=== PATIENT | male | born 1970 | race Caucasian/White ===

== ENCOUNTER 2018-07-31 04:06 | Inpatient (IN) | payer OTHER, SELFPAY ==
[2018-07-31] VITALS (23 sets, daily range): BP systolic 116–145; BP diastolic 56–91; PULSE 33–75; RESP 12–18; TEMP 36.7–36.8; O2SAT 95–100; BMI 25.0; BMI 24.5
--- NOTE | 2018-07-31 04:09 | ED.RN ---
CALLED FOR EKG PER RN REQUEST, NO OLD EKGS IN MUSE
--- NOTE | 2018-07-31 04:23 | EKG12_ITS ---
Test Reason : CARDIAC PAUSE Blood Pressure : / mmHG Vent. Rate : 044 BPM Atrial Rate : 044 BPM P-R Int : 162 ms QRS Dur : 104 ms QT Int : 452 ms P-R-T Axes : 000 005 018 degrees QTc Int : 386 ms Marked sinus bradycardia Abnormal ECG When compared with ECG of 31-JUL-2018 17:20, MANUAL COMPARISON REQUIRED, DATA IS UNCONFIRMED Confirmed by RADHA DUGAN, TOM ([id number]), publications editor JAMES ANDERSEN ([id number]) on 08/02/2018 8:01:24 AM Referred By: Noelle Amador Confirmed By:TOM GARCIA MD
--- NOTE | 2018-07-31 04:23 | RAD_ITS ---
STUDY: X-RAY CHEST REASON FOR EXAM: Male, 48 years old. Chest pain. TECHNIQUE: Single AP portable view of the chest. COMPARISON: None. FINDINGS: The lungs are clear and expanded. There is no demonstrated pleural abnormality. Normal size heart. There is small pneumomediastinum noted on the CT scan not well seen on this study. Normal visualized pulmonary arteries. Normal visualized aortic arch and descending thoracic aorta. Normal visualized thoracic spine. Normal visualized ribs, clavicles, and shoulders. There is no demonstrated abnormality of the visualized soft tissue structures of the upper abdomen. RAD/Chest 1 View IMPRESSION: Small pneumomediastinum of uncertain significance. Electronically Signed: Luis E Wu, at 6:43 EDT Tel , Service support ,
[2018-07-31 04:32] LABS: Absolute Lymphocyte Count 1.48 X10^3/ul (0.83-4.51); Absolute Neutrophil Count 5.2 X10^3/uL (2.0-7.7); Basophil# 0.03 X10^3/uL; Basophil% 0.4 % (0-1); Eosinophil# 0.25 X10^3/uL; Eosinophils% 3.3 % (0-5); Hematocrit 39.5 % (40-54); Hemoglobin 13.7 g/dl (13.0-16.5); Lymphocyte # 1.48 X10^3/ul (4.0); Lymphocyte % 19.4 % (19-41); Mean Corp Hgb Conc 34.7 g/gl (32-36); Mean Corpuscular Hgb 34.3 pg (27.0-32.0); Mean Corpuscular Volume 98.8 fL (80-94); Mean Platelet Vol. 9.6 fl (6.2-12.0); Monocyte# 0.61 X10^3/uL; Neutrophil # 5.22 X10^3/uL (2.7-7.7); Neutrophil % 68.6 % (47-70); Platelet Count 224 K/mm3 (150-450); RBC Distribution Width CV 11.8 % (11.6-14.6); RBC Distribution Width SD 41.7 fl (35.1-43.9); White Blood Count 7.6 K/mm3 (4.4-11.0)
[2018-07-31 04:33] LABS: POSITIVE COUNT NO; POSITIVE DIFFERENTIAL NO; POSITIVE MORPHOLOGY NO
[2018-07-31 04:47] LABS: BUN 10 mg/dL (7-18); Creatinine, Serum 0.97 mg/dL (0.70-1.30); Glucose 98 mg/dL (74-106)
[2018-07-31 04:48] LABS: Anion Gap 8 (5-15); BUN/Creat Ratio 10.3 RATIO (10-20); Calcium,Total 8.6 mg/dL (8.5-10.1); Chloride 108 mmol/L (98-107); EST Glomerular Filtration Rate 87 mL/min (>60); Est Glom Filt Rate - Afr Amer 106 mL/min (>60); Potassium 4.1 mmol/L (3.5-5.1); Sodium Level 143 mmol/L (136-145)
[2018-07-31] MEDS: Nitroglycerin SL (ED/IMG/CATH) 0.4 MG TABLET SUBLINGUAL ×2 (05:04→05:09)
--- NOTE | 2018-07-31 05:23 | CT_ITS ---
STUDY: CT CERVICAL SPINE WITHOUT CONTRAST REASON FOR EXAM: Male, 48 years old. PT FELL DURING EXAMINATION, STRUCK HEAD ON FLOOR RADIATION DOSAGE (If Supplied By Facility): CTDIvol = ( 23.30 ) mGy, DLP = ( 616.33 ) mGycm TECHNIQUE: High resolution transaxial imaging was performed without contrast material. Sagittal and coronal images were reconstructed. Individualized dose optimization techniques were used for this CT. COMPARISON: None FINDINGS: Normal craniovertebral junction. Normal anterior atlantoaxial articulation. Normal odontoid process. There is straightening of the normal cervical lordosis. Normal vertebral bodies and posterior osseous elements. C2-3: Normal endplates. Normal disc height and morphology. Normal central canal and intervertebral neuroforamina. C3-4: Normal endplates. Normal disc height and morphology. Normal central canal and intervertebral neuroforamina. C4-5: Normal endplates. Normal disc height and morphology. Normal central canal and intervertebral neuroforamina. C5-6: Normal endplates. Normal disc height and morphology. Normal central canal and intervertebral neuroforamina. C6-7: Normal endplates. Normal disc height and morphology. Normal central canal and intervertebral neuroforamina. C7-T1: Normal endplates. Normal disc height and morphology. Normal central canal and intervertebral neuroforamina. Dissecting air bubbles are seen in the soft tissues of neck. There is small pneumomediastinum of uncertain significance. CT/Spine Cervical without Contras IMPRESSION: No acute bone injury of the cervical spine. Dissecting air bubbles are seen in the soft tissues of neck. There is small pneumomediastinum of uncertain significance. Electronically Signed: Luis E Wu, at 6:41 EDT Tel , Service support ,
--- NOTE | 2018-07-31 05:23 | CT_ITS ---
STUDY: CT BRAIN WITHOUT CONTRAST REASON FOR EXAM: Male, 48 years old. PT FELL DURING EXAMINATION, STRUCK HEAD ON FLOOR RADIATION DOSAGE (If Supplied By Facility): CTDIvol = ( 44.99 ) mGy, DLP = ( 914.22 ) mGycm TECHNIQUE: Transaxial CT imaging of the brain was performed without administration of intravenous contrast material. Individualized dose optimization techniques were used for this CT. COMPARISON: No relevant priors. FINDINGS: Normal soft tissue structures. Postsurgical changes are noted at the anterior wall of the right and left maxillary sinuses. Normal size ventricles and extra-axial spaces for the patient's age. Normal white matter tracts of the cerebral hemispheres. Normal basal ganglia and thalami. Normal brainstem. Normal cerebellum. There is no intracranial hemorrhage. There are no findings of an acute ischemic infarction. There is mucoperiosteal inflammatory disease of the paranasal sinuses consistent with moderate chronic sinusitis. CT/Brain/Head without Contrast IMPRESSION: No intracranial hemorrhage. There is no skull fracture. Electronically Signed: Luis E Wu, at 6:39 EDT Tel , Service support ,
--- NOTE | 2018-07-31 06:49 | CT_ITS ---
STUDY: CT CHEST WITH CONTRAST REASON FOR EXAM: Male, 48 years old. Chest heaviness. RADIATION DOSAGE (If Supplied By Facility): CTDIvol = ( 11.81 ) mGy, DLP = ( 395.91 ) mGycm TECHNIQUE: Transaxial imaging was performed following intravenous administration of 100 cc of Isovue 300. Multiplanar coronal and sagittal images were reformatted. Individualized dose optimization techniques were used for this CT. COMPARISON: Prior comparison studies are not available for review at this time. FINDINGS: Cardiac monitoring leads are present. There is hyperinflation of the lungs consistent with chronic obstructive lung disease (COPD). There is mild bilateral basilar dependent atelectasis. Appears to be some pleural thickening adjacent to the right lateral chest wall. No pleural effusions are visualized. Normal heart and pericardium. There are calcifications of the coronary arteries. Normal mediastinum. Normal hilar regions. Normal enhanced pulmonary arteries. Normal aorta arch and descending thoracic aorta. There are no demonstrated pulmonary emboli. Normal osseous structures. There is no demonstrated abnormality of the visualized upper abdomen. CT/Chest WITH Contrast IMPRESSION: 1. COPD without definite acute cardiopulmonary disease. 2. Mild nonspecific right-sided lateral pleural thickening is probably related to previous infection. Electronically Signed: Akilah La MD at 9:10 EDT , Service support ,
--- NOTE | 2018-07-31 07:56 | ED.DCSUM_ITS ---
- ER Visit Summary Date of Service: 07/31/18 Chief Complaint: Chest pain History of Present Illness: The patient is a 48 M who presents with chest pain. This was sudden onset about 1 hour ago. It began while sleeping. He initially stated it felt like someone sitting on my chest he also describes it as a tightness. He currently rates it as a 5 out of 10. It was about a 7 out of 10 at its worse. It is worse with inspiration. He also complains of some mild shortness of breath. No history of prior similar symptoms. No fevers nausea vomiting diarrhea. No rashes. He has a history of celiac disease but is not a smoker, no diabetes hypertension or hyperlipidemia. There is a family history of coronary disease at a young age, his father had an NV at age 50. Physical Examination: Afebrile vitals normal Moist mucous membranes Heart regular rate and rhythm Lungs clear Abdomen soft Extremities nontender without edema Alert Test Results: EKG shows sinus rhythm at a rate of 60. CBC BMP unremarkable with negative troponin. Chest x-ray shows small pneumomediastinum. CT the head shows no intracranial hemorrhage, no skull fracture. CT the cervical spine shows no acute bony injury but there is dissecting air bubbles in the neck with pneumomediastinum. CT of the chest is currently pending. Emergency Department Course and Treatment: Patient initially underwent cardiac evaluation with EKG laboratory studies and x-ray. While over x-ray after the PA view was obtained the patient collapsed. He did feel lightheaded and dizzy beforehand. He was bradycardic. This was likely vasovagal syncope. A CT of the chest and neck was obtained because he did sustain a head injury with the fall. Imaging as above shows evidence of pneumomediastinum and some air bubbles in the neck. The etiology of this is unclear. On reevaluation he does not have any crepitus. A CT of the chest has been obtained to further evaluate this and was signed out to the oncoming physician. Treatment Plan: [] Disposition: Admit versus transfer pending CT of the chest Impression: Pneumomediastinum This note was generated with [employer] dictation software. It may contain incorrect words, spelling, and punctuation that were not noted in review of the chart prior to signing ED Disposition - Plan for ED Patient: Referrals: Franklin Mallory MD [Primary Care Provider] -
[2018-07-31 08:10] LABS: Magnesium 1.5 mg/dL (1.6-2.6)
--- NOTE | 2018-07-31 09:00 | ED.RN ---
Slight dizziness when up to use bathroom. Gait steady to bathroom
[2018-07-31] MEDS: Morphine 4 MG/ML Syringe IV (09:22)
--- NOTE | 2018-07-31 10:20 | NURSING ---
DR STEVO MORALES
--- NOTE | 2018-07-31 10:40 | NURSING ---
PCU CP, HYPOMAGNESEMIA SEMENT
--- NOTE | 2018-07-31 11:26 | EKG12_ITS ---
Test Reason : IRREGULAR RHYTHM Blood Pressure : / mmHG Vent. Rate : 047 BPM Atrial Rate : 047 BPM P-R Int : 146 ms QRS Dur : 110 ms QT Int : 458 ms P-R-T Axes : 000 012 027 degrees QTc Int : 405 ms Sinus bradycardia Otherwise normal ECG When compared with ECG of 31-JUL-2018 23:38, MANUAL COMPARISON REQUIRED, DATA IS UNCONFIRMED Confirmed by RADHA DUGAN, TOM ([id number]), writer editor JAMES ANDERSEN ([id number]) on 08/02/2018 7:59:17 AM Referred By: Noelle Amador Confirmed By:TOM GARCIA MD
[2018-07-31 11:50] LABS: AST(SGOT) 29 U/L (15-37); Alanine Aminotransfer ALT/SGPT 33 U/L (16-61); Albumin, Serum 3.7 g/dL (3.2-5.0); Alkaline Phosphatase 55 U/L (45-117); Bilirubin, Direct 0.09 mg/dL (0.00-0.30); Globulin 2.7 g/dL (2.2-4.2); Protein, Total 6.4 g/dL (6.4-8.2)
--- NOTE | 2018-07-31 12:41 | PCM.HP.STD ---
Problem List (1) Chest pain Status: Acute (2) Syncope Status: Acute (3) Bradycardia Status: Acute (4) Hypomagnesemia Status: Acute (5) Celiac disease Status: Chronic (6) History of migraine Status: Chronic History of Present Illness Date of Admission: 07/31/18 Chief Complaint: chest heaviness The patient is a healthy 48 year old M on no chronic medications who awoke from sleep at approximately 3 AM with chest heaviness. This was associated with some shortness of breath. He also reports that her for the past 6-week he is having some left shoulder pain. The chest heaviness gets worse when he takes a deep breath. It was somewhat relieved in the emergency department with morphine. He received 2 sublingual nitroglycerin in the emergency room and was sent to CT scan for chest x-ray. When he stood he had a syncopal episode and struck his head. Vital signs at presentation to the emergency department were temp 98.1, pulse rate 54, blood pressure 124/75, respiratory rate 16 and he was 99% saturated on room air. CBC was unremarkable. BMP was unremarkable. Magnesium was low at 5.1 and the LFTs are normal. Troponin x2 has been less than 0.015. He has never been a smoker. He denies any history of hypertension, diabetes mellitus there is a family history of heart disease in his father. He denies any recent travel and also denies any history of VTE. There is no family history of hypercoagulable disorders. He tells me that he plays soccer 2-3 times a week and experiences no chest pain and no dyspnea on exertion. The patient does not know his cholesterol and cannot recall ever having a lipid panel checked. EKG shows normal sinus rhythm with no suspicious ST or T wave changes. Chest x-ray shows no infiltrates, pulmonary vascular congestion or pleural effusions. Brain CT showed no intracranial hemorrhage and no skull fracture. A cervical spine CT showed no acute bony injury. There were dissecting air bubbles reported in the soft tissues of the neck and a small pneumomediastinum of uncertain significance. He subsequently underwent a CT scan of the chest which was negative for pneumomediastinum. He denies painful swallowing or dysphagia. He was admitted to a monitored bed on PCU and serial CE's were ordered. Past Medical History Past Medical History (Chronic Problems): Chronic Problems Celiac disease (Chronic) History of migraine (Chronic) Allergies No Known Allergies Allergy (Verified 07/31/18 04:11) Home Medications: Ambulatory Orders Medication Instructions Recorded NK 07/31/18 Surgical History: noncontributory Psychiatric History: No pertinent psych hx Lives: Spouse/ Significant Other Smoking Status: Never smoker Tobacco Use: Non-smoker Alcohol: Rare Drugs: None - *Family History Paternal History Items: Heart Disease Sibling History Items: - - celiac's disease. Brother was recently in the hospital for fluid around his heart Review of Systems Constitutional: Denies: Chills, Fever, Weight Change HEENT: Denies: Head Aches, Sinus Congestion, Sinus Drainage Cardiovascular: Reports: Chest Pain, Heaviness, Light Headedness - episodic, Syncope - while standing after receiving NTG X 2 in the ED. Denies: Orthopnea, Palpitations, Paroxysmal Noc. Dyspnea Respiratory: Reports: Pleuritic Pain - CP increases with deep breathing. Denies: Cough, Hemoptysis, Shortness of breath at rest, Sputum production Gastrointestinal: Denies: Abdominal Pain, Nausea, Vomiting Genitourinary: Denies: Dysuria Musculoskeletal: Reports: Joint Pain - left shoulder. Denies: Joint Tenderness Skin: Denies: Rash, Wounds Neurological: Denies: Numbness, Tingling, Focal weakness Psychiatric: Denies: Anxiety, Depression, Homicidal Ideations, Suicidal Ideations Hematologic/ Lymphatic: Denies: Easy Bruising, Easy Bleeding VTE Information - Inpt Only VTE Present on Admission: No VTE Mechan Device Prophylaxis: None VTE Pharm Prophylaxis ordered?: No Reason prophylaxis not ordered:: Treatment Not Indicated - very low risk and he will be ambulatory Patient Problems: Active and Suspected Problems Chest pain (Acute) Syncope (Acute) Bradycardia (Acute) Hypomagnesemia (Acute) - Physical Exam General: Alert, Oriented x3, Cooperative HEENT: Atraumatic, PERRLA, EOMI, Normocephalic Oral: No Gingival or Mucosal Lesions/ Ulcerations, Dry Mucosa Neck: Supple, No JVD, Negative Carotid Bruits, No Nodes, No Nuchal Rigidity, Trachea Midline Lungs: Clear to auscultation, Normal air movement Cardiovascular: Regular Rhythm, Normal S1, Normal S2, No murmurs, Bradycardic, No rub noted, No Gallop Abdomen: Bowel Sounds Present, Soft, Non Tender, Non-Distended Extremities: No clubbing, No cyanosis, No edema, Capillary Refill Less than 3 Seconds, No Calf Tenderness Skin: No rashes, No breakdown Musculoskeletal: No Tenderness to Palpation of Joints or Extremities Neurological: Cranial nerves II-XII grossly intact, Neuro grossly intact Psych/Mental Status: Normal Affect, Appropriate Vital Signs Temp Pulse Resp BP Pulse Ox 98.3 F 50 L 16 128/67 H 97 07/31/18 11:45 07/31/18 11:45 07/31/18 11:45 07/31/18 11:45 07/31/18 11:45 Oxygen Flow Rate (L/min) 2 Oxygen Delivery Method Room Air Weight: 180 lb 12.465 oz Body Mass Index (BMI) 24.5 Laboratory Tests Past 24 Hrs 07/31/18 07/31/18 07/31/18 04:20 04:20 07:36 WBC 7.6 RBC 4.00 L Hgb 13.7 Hct 39.5 L MCV 98.8 H MCH 34.3 H MCHC 34.7 RDW 11.8 RDW Differential 41.7 Plt Count 224 MPV 9.6 Immature Gran % (Auto) 0.300 Neut % (Auto) 68.6 Lymph % (Auto) 19.4 [place] % (Auto) 8.0 Eos % (Auto) 3.3 Baso % (Auto) 0.4 Absolute Neuts (auto) 5.2 Absolute Lymphs (auto) 1.48 Total Counted Not Reportable Sodium 143 Potassium 4.1 Chloride 108 H Carbon Dioxide 27.0 Anion Gap 8 BUN 10 Creatinine 0.97 Estim Creat Clear Calc 100.00 Est GFR (MDRD) Af Amer 106 Est GFR (MDRD) Non-Af 87 BUN/Creatinine Ratio 10.3 Glucose 98 Calcium 8.6 Magnesium 1.5 L Total Bilirubin Direct Bilirubin AST ALT Alkaline Phosphatase Troponin I < 0.015 < 0.015 Total Protein Albumin Globulin 07/31/18 07/31/18 07:36 12:10 WBC RBC Hgb Hct MCV MCH MCHC RDW RDW Differential Plt Count MPV Immature Gran % (Auto) Neut % (Auto) Lymph % (Auto) [place] % (Auto) Eos % (Auto) Baso % (Auto) Absolute Neuts (auto) Absolute Lymphs (auto) Total Counted Sodium Potassium Chloride Carbon Dioxide Anion Gap BUN Creatinine Estim Creat Clear Calc Est GFR (MDRD) Af Amer Est GFR (MDRD) Non-Af BUN/Creatinine Ratio Glucose Calcium Magnesium Total Bilirubin 0.30 Direct Bilirubin 0.09 AST 29 ALT 33 Alkaline Phosphatase 55 Troponin I < 0.015 Total Protein 6.4 Albumin 3.7 Globulin 2.7 Assessment/Plan All Active Problems Chest pain (Acute) Syncope (Acute) Bradycardia (Acute) Hypomagnesemia (Acute) Impressions 1. Chest heaviness which is constant and exacerbated with deep breathing. EKG is normal with pain and Troponins have been negative X 2 2. History of migraine cephalgia celiac's disease 3. Positive family history of cardiovascular disease in his father 4. syncope - likely due to orthostatic hypotension related to 2 NTG and standing D- DIMER was ordered however he has no significant RF Admit to a monitored bed on PCU ASA 81 mg PO daily SL NTG 0.4 mg PRN chest pain Serial Cardiac Enzymes Stat EKG PRN CP Chest XRAY treadmill Stress test in the AM if the cardiac enzymes are negative DVT prophylaxis not indicated - risk is 1
--- NOTE | 2018-07-31 13:30 | PCM.CONS.C ---
Problem List (1) Chest pain Status: Acute (2) Syncope Status: Acute (3) Bradycardia Status: Acute Reason for Consult Date of Consultation: 07/31/18 Reason for Consultation: Chest Pain History of Present Illness: The patient is a 48 year old M with history of celiac disease who woke up early this morning with retrosternal chest pain especially worse by breathing and then was brought to the emergency room by his . In the last week or so he has been also feeling off for dizzy at times. 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 Otherwise he is pretty active physically, participates in soccer where he plays 3 times per week. He has significant family history for premature CAD, with with his dad having AK and stents in his 50s. He does not smoke or drink. His initial ECG was normal. His cardiac markers were negative x2 in the emergency room and after receiving . Sublingual nitroglycerin, he had a syncopal episode upon standing. This was thought to be related to nitroglycerin and low blood pressure. CT of the head was negative. A CT of the chest with contrast were negative for pneumothorax and aortic dissections. He was admitted to cardiac telemetry. On telemetry he had occasional asymptomatic severe slowing of his sinus rate, down to the 30s while he was resting in bed. This was asymptomatic. He denies any associated nausea or vomiting feeling dizzy lightheaded. His chest pain has been mostly resolved although he continues to have low level of chest pain. [] Past Medical History Allergies/Adverse Reactions: Allergies No Known Allergies Allergy (Verified 07/31/18 04:11) Home Medications: Ambulatory Orders Medication Instructions Recorded NK 07/31/18 Past Medical History (Chronic Problems): Chronic Problems Celiac disease (Chronic) History of migraine (Chronic) Surgical History: noncontributory Psychiatric History: No pertinent psych hx - *Family History Paternal History Items: Heart Disease Sibling History Items: - - celiac's disease. Brother was recently in the hospital for fluid around his heart Lives: Spouse/ Significant Other Smoking Status: Never smoker Tobacco Use: Non-smoker Alcohol: Rare Drugs: None Review of Systems - Review of Systems General: Denies: Fever, Night Sweats, Fatigue Cardiovascular: Denies: Chest Discomfort, Shortness of Breath, Orthopnea, PND, Peripheral Edema, Palpitations, Lightheadedness, Dizziness, Near Syncope, Syncope Respiratory: Denies: Cough, Sputum Production, Hemoptysis Gastrointestinal: Denies: Hematemesis, Hematochezia, Melena Genitourinary: Denies: Dysuria, Hematuria Skin: Denies: Rash Objective: Vital Signs Temp Pulse Resp BP Pulse Ox 98.3 F 50 L 16 128/67 H 97 07/31/18 11:45 07/31/18 11:45 07/31/18 11:45 07/31/18 11:45 07/31/18 11:45 Oxygen Flow Rate (L/min) 2 Oxygen Delivery Method Room Air Weight: 180 lb 12.465 oz Body Mass Index (BMI) 24.5 Intake and Output for Last 24 Hours 07/29/18 07/30/18 07/31/18 23:59 23:59 23:59 Intake Total 200 / 200 Balance 200 / 200 General: Awake, Alert, Oriented x 3 HEENT: PERRL, EOMI, Sclera Non Icteric Neck: Supple, Good ROM, No Lymph Node Enlargement Lungs: Clear to auscultation Cardiovascular: Regular Rhythm, Normal S1, Normal S2, No Murmurs, No Rubs, No Gallops Vascular: No Carotid Bruits, Normal Femoral Pulses, Normal Radial Pulses, Normal Dorsalis Pedal Pulse, Normal Posterior Tibial Pulses Abdomen: Bowel Sounds Present, Soft, Non Tender, No HSM, No Organomegaly Extremities: No Cyanosis, No Clubbing, No edema Neurological: No Focal Motor or Sensory Deficit 07/31/18 04:20: WBC 7.6, RBC 4.00 L, Hgb 13.7, Hct 39.5 L, MCV 98.8 H, MCH 34.3 H, MCHC 34.7, RDW 11.8, RDW Differential 41.7, Plt Count 224, MPV 9.6, Immature Gran % (Auto) 0.300, Neut % (Auto) 68.6, Lymph % (Auto) 19.4, [place] % (Auto) 8.0, Eos % (Auto) 3.3, Baso % (Auto) 0.4, Absolute Neuts (auto) 5.2, Total Counted Not Reportable 07/31/18 04:20: Sodium 143, Potassium 4.1, Chloride 108 H, Carbon Dioxide 27.0, Anion Gap 8, BUN 10, Creatinine 0.97, Est GFR (MDRD) Af Amer 106, Est GFR (MDRD) Non-Af 87, BUN/Creatinine Ratio 10.3, Glucose 98, Calcium 8.6, Troponin I < 0.015 07/31/18 07:36: Magnesium 1.5 L, Troponin I < 0.015 07/31/18 07:36: Total Bilirubin 0.30, Direct Bilirubin 0.09 07/31/18 12:10: Troponin I < 0.015 Rhythm: EKG: ECHO: Stress Test: Cardiac Cath: PCI: CT Surgery: Holter monitor: EPS: PPM: CXR: Chest CT Scan: Assessment/Plan Impression: 1. Retrosternal chest pain, worsened by breathing. 2. Recurrent episodes of dizziness/lightheadedness. 3. Syncopal episode in the emergency room, thought to be related to sublingual nitroglycerin hypertension. 4. Significant family history for premature CAD 5. Documented asymptomatic severe sinus bradycardia (in the low 30s) on telemetry. Plan: 1. Continue rule out AK protocol with serial enzymes. 2. Check d-dimer. If elevated, we will proceed with CT PE of the chest 3. 2D echocardiogram with Doppler to assess LV function and cardiac valves. 4. Ischemia work-up in the form of a stress test. 5. Possible 30-day event monitor upon discharge
[2018-07-31 13:49] LABS: D-Dimer Quantitative (DVT/PE) < 0.27 FEU/ug/m (0.27-0.49)
[2018-07-31] MEDS: 0.9% NaCl Peripheral Flush Adult/Peds IV (17:55)
[2018-07-31] MEDS: Ondansetron 4 MG/2 ML Vial IV (17:55)
--- NOTE | 2018-07-31 18:10 | PCM.HOSP.N ---
Hospitalist Note Patient per RN with episode of lightheadedness, nausea, diaphoresis w/ emesis x 1. Patient w/ noted improvement upon evaluation, no concerning telemetry changes, improved w/ zofran. He notes not having had any reasonable intake since the evening prior and had just drank a high sugar pulp drink in one setting with emesis following. Requested he eat something appropriate, add protonix, obtain orthostatic VS with addition fluids if appropriate. No chest pain or pressure noted.
--- NOTE | 2018-07-31 19:05 | RAD_ITS ---
STUDY: X-RAY - LEFT FOOT CLINICAL: Male, 48 years old. Fell and injured left foot TECHNIQUE: 3 view(s) of the foot. COMPARISON: None. FINDINGS: Os navicularis is noted. Normal talus, calcaneus, and tarsal bones. Normal visualized subtalar, talonavicular, calcaneocuboid, tarsal and tarsometatarsal articulations. Normal metatarsi. Normal metatarsophalangeal joint of the great toe. Normal tibial and fibular sesamoid bones. Normal interphalangeal joint of the great toe. Normal phalanges of the great toe. Normal second through fifth metatarsophalangeal joints. Normal interphalangeal joints and phalanges of the lesser toes. The soft tissue structures are unremarkable. RAD/Foot min 3 Views IMPRESSION: Normal x-ray examination of the foot. Electronically Signed: Jarrod Portillo MD at 23:32 EDT , Service support ,
[2018-07-31 19:45] LABS: Thyroid Stim Hormone (TSH) 0.44 uIU/mL (0.358-3.74)
[2018-07-31] MEDS: DOPamine IV 800 MG/250 ML IV.SOLN. CONT INF (20:05)
--- NOTE | 2018-07-31 22:38 | PCM.PN.CARD ---
Subjectve: This is a 48-year-old white male with no past cardiovascular history who presented for evaluation of concerns of nocturnal chest discomfort as well as episodes of recent dizziness and lightheadedness has undergone noninvasive cardiovascular evaluation and cardiovascular consultation by Dr. White. The patient noted state of health until 07-26-18 where he stated when playing his usual soccer again he just did not feel his self and was somewhat more tired and fatigued and needed to rest more and subsequently upon returning home sleep more. He felt better the following day. However the next day on 07-28-18 he states he felt somewhat lightheaded. He came home early from work and states he slept. Again he felt better the next day. He believes he was feeling well until approximately 3:30 AM on this day. He awoke with chest discomfort which he described as chest heaviness in the center of his chest and more concerning when he took a deep breath. It did not radiate at the time. He did not have associated nausea, emesis, or diaphoresis. He had no loss of consciousness. His who is a [facility] [employer] RN contacted the EMS and had him brought to the hospital for further evaluation. He is currently underwent evaluation in the emergency department, from a cardiac standpoint, which included cardiac enzymes and an ECG. His cardiac enzymes were negative. His ECG by EMS demonstrated sinus rhythm with a ventricular rate of approximately 65 bpm with no acute ECG changes. His follow-up ECG demonstrated sinus rhythm with a ventricular rate of approximately 60 bpm with no acute ECG changes. Based upon his symptoms he was treated with nitroglycerin sublingual. He stated he believes he felt somewhat better with respect to his chest discomfort. He does not recall having any acute issues such as headaches, etc. following his nitroglycerin sublingual. He was taken to radiology for a chest x-ray. He, while standing for his chest x-ray, experienced a syncopal event. He states he awoke with people looking at him. He notes it took him a moment to realize where he was out and what was going on. He reportedly upon reevaluation was noted to have sinus bradycardia with ventricular rates ranging from 30 to 40 bpm range to the 40 to 50 bpm range and/or the 50 to 60 bpm range. He was not reported as being hypotensive. He was not reported as having other cardiac dysrhythmias. He subsequently has had additional radiologic studies which have included a chest CT scan and a brain CT scan as well as a left foot x-ray. His radiologic studies, between different radiologist, raised concerns of a possible pneumomediastinum. This was based upon his chest x-ray and his brain CT scan raising concerns of air in the soft tissues in the neck area. However his chest CT scan was reported as negative for pneumomediastinum. He was subsequently placed in the PCU for further evaluation. He continued with cardiac enzymes which remained negative. His repeat ECGs demonstrated sinus rhythm/sinus bradycardia with ventricular rates between 40 and 50 beats per minutes. Again there were no acute changes. His cardiac rhythm demonstrated episodes of sinus rhythm as well as episodes appearing compatible with brief episodes of sinus tachycardia, PACs, second-degree AV block Mobitz 1 Wenckebach, as well as episodes of sinus bradycardia with RR intervals at times ranging between 2 seconds to 3 seconds in duration. He was subsequently placed on additional medical therapy with IV dopamine. He was noted to have episodes while lying in bed of a somewhat waxing and waning headache, transient episodes of feeling warm and diaphoretic, and generalized not feeling well overall sensation. He also notes when he lies in bed for prolonged periods of time that his back and his abdomen do bother him. His left great toe was reported as being somewhat ecchymotic. During his evaluation he had 2 episodes of his sensation of feeling warm and transient diaphoresis. During those times he remained in a sinus rhythm with ventricular rates between 40 and 50 bpm with no evidence of hypotension. There were no other dysrhythmias noted. Based upon his conflicting radiologic studies a call was placed to radiology for an independent review of his various studies. Based upon review by Dr. Ten Galvin there was no evidence of a pneumomediastinum reported (please see the over read addendum's). However, there was report of coronary calcification and soft plaque in the LAD distribution despite the study and not being a cardiac CTA study. Also, of note, on preliminary review he did not note any obvious left great toe fracture. However, the final report is pending. The patient has denied any known history of cardiovascular disease. He does not know what his baseline heart rate is. He does not believe he is ever been diagnosed with any blood pressure related issues. He does not recall undergoing any cardiovascular testing in the past. He has denied any previous episodes of chest discomfort or difficulty breathing. He has denied any orthopnea, PND, peripheral pitting edema. He does not recall with his recent soccer related events any definitive trauma to his chest. He also does not recall any obvious episodes of fever, chills, night sweats, or previous nausea, emesis, or diarrhea. Objective: Vital Signs Temp Pulse Resp BP Pulse Ox 98.1 F 41 L 16 129/56 H 100 07/31/18 17:45 07/31/18 20:11 07/31/18 17:48 07/31/18 18:08 07/31/18 17:48 Oxygen Flow Rate (L/min) 2 Oxygen Delivery Method Room Air Weight: 180 lb 12.465 oz Body Mass Index (BMI) 24.5 Orthostatic Vital Signs Start: 07/31/18 18:08 Freq: q24h Status: Active Protocol: Activity Type Activity Date Activity User E-Sign Co-Sign Detail Recorded Client Recorded Date Recorded By Document 07/31/18 18:08 MIRIAM [id number] 07/31/18 18:12 MIRIAM 07/31/18 18:08 Orthostatic Vitals Standing -Blood Pressure (90/60-120/80 mm Hg) 130/67 H -Extremity Use Right Arm -Pulse Rate (60-100 beats/min) 53 L Sitting -Blood Pressure (90/60-120/80 mm Hg) 130/61 H -Extremity Use Right Arm -Pulse Rate (60-100 beats/min) 47 L Lying -Blood Pressure (90/60-120/80 mm Hg) 129/56 H -Extremity Use Right Arm -Pulse Rate (60-100 beats/min) 45 L Intake and Output for Last 24 Hours 07/29/18 07/30/18 07/31/18 23:59 23:59 23:59 Intake Total 400 / 400 Balance 400 / 400 General: Healthy Appearing, Awake, Alert, Oriented x 3, Cooperative, No Acute Distress HEENT: Atraumatic, Normocephalic, PERRL, EOMI, Sclera Non Icteric Oral: Moist Mucosa Neck: Supple, Good ROM, No JVD Lungs: Clear to auscultation Cardiovascular: Regular Rhythm, Normal S1, Normal S2 Vascular: No Carotid Bruits Abdomen: Bowel Sounds Present, Soft, - - Positive tenderness to palpation in the epigastric area Extremities: No Cyanosis, No Clubbing, No edema Musculoskeletal: - - Left great toe: Mild ecchymoses Neurological: No Focal Motor or Sensory Deficit Psych/Mental Status: Appropriate 07/31/18 04:20: WBC 7.6, RBC 4.00 L, Hgb 13.7, Hct 39.5 L, MCV 98.8 H, MCH 34.3 H, MCHC 34.7, RDW 11.8, RDW Differential 41.7, Plt Count 224, MPV 9.6, Immature Gran % (Auto) 0.300, Neut % (Auto) 68.6, Lymph % (Auto) 19.4, [place] % (Auto) 8.0, Eos % (Auto) 3.3, Baso % (Auto) 0.4, Absolute Neuts (auto) 5.2, Total Counted Not Reportable 07/31/18 04:20: Sodium 143, Potassium 4.1, Chloride 108 H, Carbon Dioxide 27.0, Anion Gap 8, BUN 10, Creatinine 0.97, Est GFR (MDRD) Af Amer 106, Est GFR (MDRD) Non-Af 87, BUN/Creatinine Ratio 10.3, Glucose 98, Calcium 8.6, Troponin I < 0.015 07/31/18 07:36: Magnesium 1.5 L, Troponin I < 0.015 07/31/18 07:36: Total Bilirubin 0.30, Direct Bilirubin 0.09 07/31/18 12:10: Troponin I < 0.015 07/31/18 12:10: D-Dimer Quant (PE/DVT) < 0.27 L Rhythm: As noted above EKG: As noted above CXR: As noted above: Please see official report Chest CT Scan: As noted above: Please see official report Medical Necessity - Tobacco Use Smoking Status: Never smoker Tobacco Use: Non-smoker Assessment/Plan 1. Chest pain The patient has cardiovascular risk factors which have included a positive family history. He is not known to have a history of hypertension or diabetes mellitus. His lipid history is unknown. His tobacco history includes occasional cigarettes during his college years . His chest discomfort is concerning based upon his description and other objective findings which have included his cardiac dysrhythmia and his chest CT findings raising concerns of coronary artery calcification and soft plaque in the LAD distribution. At the moment he has had no other definitive explanation for his chest discomfort such as great vessel disease or acute pulmonary disease or acute musculoskeletal related events or definitive gastrointestinal related event, etc. He is being monitored from a cardiac standpoint with cardiac enzymes and cardiac telemetry and ECGs. He is being scheduled for a transthoracic echocardiogram to further assess his left ventricular wall motion and systolic function. He was being scheduled for an exercise tolerance test/imaging study which would be beneficial with respect to evaluating his cardiac rate and rhythm response as well as any other objective markers for cardiovascular disease, however, based upon his resting symptoms that he has had both at home and in the hospital superimposed upon his findings of his chest CT scan it was felt reasonable to alter his evaluation from an exercise tolerance test to a diagnostic cardiac catheterization. The procedure and risks were discussed with him and he was agreeable to this. In the meantime he will continue medical management. This concluded aspirin therapy, antiplatelet therapy (knowing his brain CT scan noted no acute TELETYPE OPERATOR event including hemorrhagic event), and other cardiovascular medications as deemed appropriate avoiding issues with bradycardia and/or hypotension. 2. Lightheadedness The patient has had episodes of lightheadedness. He has noted these episodes earlier in the week as well as subsequently this afternoon/evening after being admitted to the hospital. Again the etiology is unclear as to whether or not these episodes are related to an underlying cardiac issue including concerns of his cardiac rate and rhythm changes versus a noncardiac issue. From a cardiac standpoint he will continue evaluation care as noted above. Noncardiac standpoint he has been evaluated, secondary to his previous events, with a brain CT scan. Thus far that was negative for any acute TELETYPE OPERATOR related event. 3. Syncope The patient had a syncopal event while attempting to stand for his chest x-ray. It is unclear whether this was related to an underlying primary cardiovascular event including concerns of his underlying cardiac dysrhythmia with rate and rhythm changes versus another event such as a post nitroglycerin sublingual event with subsequent changes in rate and/or pressures. It is unclear as he was reportedly not on a occupational therapy program director when this event occurred. Following the event he was reported as being bradycardic but not hypotensive. 4. Cardiac dysrhythmia The patient has had cardiac dysrhythmia demonstrating evidence of sinus rhythm, sinus bradycardia, sinus tachycardia, PACs, as well as episodes appearing compatible second-degree AV block Mobitz 1. It is unclear as to what the patient's baseline heart rate and rhythm is. Is unclear as to whether these findings are secondary to another cardiovascular issue or noncardiac issue and/or contributing to the patient's symptoms, etc. At the moment the patient will continue his noninvasive and subsequently invasive evaluation as noted above. In the meantime he will continue to be monitored. Rate limiting agents are being avoided. He has been placed on additional medical therapy with IV dopamine as previously noted. He will be monitored with this medication as to whether or not there is any significant change in his underlying cardiac rate and/or rhythm. Depending upon his diagnostic findings consideration might be given as to whether or not his underlying in rate and rhythm changes are a primary cardiac versus a noncardiac related issue and how to further address them. 5. Abdominal discomfort The patient has complained of abdominal discomfort to palpation in the epigastric area. He also noted following an attempt at some oral intake he did have nausea and emesis. It is unclear whether these findings and subsequent events are in some way related to an ongoing cardiovascular issue versus a separate abdominal/gastrointestinal related issue. (Of note the patient does have a history of celiac disease, however, he states he has been on his appropriate diet without any alterations recently) He will continue his cardiac evaluation as noted above. Depending upon the findings he may need subsequent noncardiac evaluation as well. In the interim he will have additional laboratory studies with amylase and lipase to further evaluate for any obvious pancreatic related issues that may be contributing to these findings. 6. Celiac disease Again the patient does have celiac disease. However he states he has been on his appropriate diet with no alteration recently that he believes would be triggering any type of symptoms or concerns. 7. Migraine headaches The patient states he does have intermittent migraine headaches. He states he will have to usually sleep to have his migraine headaches past. He does note when he stays in bed too long that he becomes very uncomfortable with respect to how he feels in his thorax and his abdomen. Comment: The patient states was discussed at length with the patient, his spouse, and Dr. White. They were in agreement to the aforementioned evaluation and care plan. This note was generated using a voice recognition system and there may be incorrect words, spelling or punctuation that were not noted when reviewing the office note prior to saving.
--- NOTE | 2018-07-31 22:53 | EKG12_ITS ---
Test Reason : IRREGULAR RHYTHM Blood Pressure : / mmHG Vent. Rate : 074 BPM Atrial Rate : 074 BPM P-R Int : 232 ms QRS Dur : 100 ms QT Int : 354 ms P-R-T Axes : 088 -12 045 degrees QTc Int : 392 ms Sinus rhythm with 1st degree A-V block with Premature supraventricular complexes and with occasional Premature ventricular complexes with ventricular escape complexes Otherwise normal ECG Confirmed by RADHA DUGAN, TOM ([id number]), newspaper photo editor JAMES ANDERSEN ([id number]) on 08/02/2018 8:00:44 AM Referred By: Noelle Amador Confirmed By:TOM GARCAI MD
[2018-07-31 23:06] LABS: Amylase 29 U/L (25-115)
[2018-07-31] MEDS: Atorvastatin Calcium 80 MG Tablet PO (23:19)
[2018-07-31] MEDS: Aspirin 325 MG Tablet PO (23:19)
[2018-07-31] MEDS: 0.9% Normal Saline 1,000 ML 75 ML IV (23:19)
[2018-07-31] MEDS: TICAGRELOR 90 MG TABLET 180 MG PO (23:19)
--- NOTE | 2018-07-31 23:35 | EKG12_ITS ---
Test Reason : Blood Pressure : / mmHG Vent. Rate : 045 BPM Atrial Rate : 045 BPM P-R Int : 152 ms QRS Dur : 106 ms QT Int : 480 ms P-R-T Axes : 000 001 025 degrees QTc Int : 415 ms Sinus bradycardia Otherwise normal ECG Confirmed by RADHA DUGAN, TOM ([id number]), non linear editor JAMES ANDERSEN ([id number]) on 08/02/2018 8:02:04 AM Referred By: Noelle Amador Confirmed By:TOM GARCIA MD
[2018-08-01] VITALS (24 sets, daily range): BP systolic 102–141; BP diastolic 52–81; PULSE 38–67; RESP 10–22; TEMP 36.5–36.8; O2SAT 97–100
[2018-08-01] MEDS: Ondansetron 4 MG/2 ML Vial IV ×2 (00:04→06:14)
--- NOTE | 2018-08-01 00:07 | EKG12_ITS ---
Test Reason : Blood Pressure : / mmHG Vent. Rate : 040 BPM Atrial Rate : 040 BPM P-R Int : 156 ms QRS Dur : 106 ms QT Int : 462 ms P-R-T Axes : -07 008 028 degrees QTc Int : 376 ms Marked sinus bradycardia Abnormal ECG When compared with ECG of 31-JUL-2018 04:11, MANUAL COMPARISON REQUIRED, DATA IS UNCONFIRMED Confirmed by RADHA DUGAN, TOM ([id number]), mapping editor JAMES ANDERSEN ([id number]) on 08/02/2018 8:02:40 AM Referred By: Noelle Amador Confirmed By:TOM GARCIA MD
[2018-08-01 04:31] LABS: Bacteria 0 SEEN /hpf (None Seen); Mucous, Urine 0 SEEN /hpf (<or=2+); Red Blood Cells-Urine 0 SEEN /hpf (0-5); Squamous Epithelial Cells - UA 0 SEEN /hpf (0-5); White Blood Cells 0 SEEN /hpf (0-5)
[2018-08-01 04:37] LABS: Color, Urine Yellow (Yellow); Glucose, Dipstick Normal (Normal); Ketone-Dipstick Negative (Negative); Leukocyte Esterase-Dipstick Negative /ul (Negative); Nitrite-Dipstick Negative (Negative); Occult Blood-Urine Negative /ul (Negative); Protein-Dipstick Negative (Negative); Specific Gravity, Urine 1.015 (1.002-1.030); Urine Bilirubin Dipstick Negative (Negative); Urine Clarity Clear (Clear); Urine Urobilinogen Normal (Normal)
--- NOTE | 2018-08-01 05:55 | EKG12_ITS ---
Test Reason : AM EKG Blood Pressure : / mmHG Vent. Rate : 046 BPM Atrial Rate : 046 BPM P-R Int : 156 ms QRS Dur : 104 ms QT Int : 454 ms P-R-T Axes : 001 012 036 degrees QTc Int : 397 ms Sinus bradycardia Otherwise normal ECG When compared with ECG of 01-AUG-2018 00:09, MANUAL COMPARISON REQUIRED, DATA IS UNCONFIRMED Confirmed by RADHA DUGAN, TOM ([id number]), movie editor JAMES ANDERSEN ([id number]) on 08/02/2018 7:51:22 AM Referred By: Noelle Amador Confirmed By:TOM GARCIA MD
--- NOTE | 2018-08-01 05:55 | ECHOD_ITS ---
Reason For Study: Chest pain Procedure This was a 2D Doppler, Color Flow transthoracic echocardiogram. The exam was of adequate technical quality. Exam performed portable in patient room. Left Ventricle Normal LV size. Left ventricular systolic function is normal. The estimated ejection fraction is 65 %. No evidence for diastolic dysfunction. No regional wall motion abnormalities noted. Right Ventricle Normal RV size. Normal systolic function. Atria Normal left atrium. Normal right atrium. No doppler evidence for ASD. Mitral Valve There is no mitral annular calcification. Equivocal mitral valve prolapse, posterior leaflet. Mild (1+) mitral valve insufficiency. Tricuspid Valve Normal tricuspid valve. Trivial tricuspid valve insufficiency. Aortic Valve Trisinus/trileaflet aortic valve. Mild focal aortic valve calcification. Pulmonic Valve The pulmonic valve is not well visualized. Trivial eccentric pulmonic valve insufficiency. Great Vessels Normal sized aortic root. Pericardium/Pleural No pericardial effusion. MMode/2D Measurements & Calculations LVIDd: 5.8 cm IVSd: 1.1 cm Ao root diam: 3.1 cm LVIDs: 2.9 cm LVPWd: 0.90 cm RVDd: 3.4 cm FS: 49.4 % LAV(MOD-bp): 58.0 ml LA A4 area: 20.2 cm2 LA dimension(2D): 3.4 cm LAV(MOD-bp) Indexed: 28.5 ml/m2 LAV(MOD-sp2): 60.2 ml LAV(MOD-sp4): 55.4 ml RA A4 area: 20.0 cm2 Doppler Measurements & Calculations MV E max bartolo: 102.0 cm/sec Lat Peak E' Bartolo: 14.8 cm/sec Med Peak E' Bartolo: 13.6 cm/sec MV A max bartolo: 40.5 cm/sec E/E' lat: 6.9 E/E' med: 7.5 MV E/A: 2.5 Ao V2 max: 153.9 cm/sec LV V1 max: 125.1 cm/sec PA V2 max: 118.3 cm/sec Ao max P.5 mmHg LV V1 max P.3 mmHg Interpretation Summary Left ventricular systolic function is normal. The estimated ejection fraction is 65 %. Equivocal mitral valve prolapse, posterior leaflet Mild (1+) mitral valve insufficiency. Trivial tricuspid valve insufficiency. Mild focal aortic valve calcification. Trivial eccentric pulmonic valve insufficiency. No evidence for diastolic dysfunction. Ordering Physician: Margarita Amador Referring Physician: Franklin Mallory Performed By: Yu Smart RDCS
[2018-08-01 06:08] LABS: Absolute Lymphocyte Count 0.88 X10^3/ul (0.83-4.51); Absolute Neutrophil Count 5.8 X10^3/uL (2.0-7.7); Basophil# 0.01 X10^3/uL; Basophil% 0.1 % (0-1); Eosinophil# 0.03 X10^3/uL; Eosinophils% 0.4 % (0-5); Hematocrit 38.2 % (40-54); Hemoglobin 13.2 g/dl (13.0-16.5); Lymphocyte # 0.88 X10^3/ul (4.0); Lymphocyte % 12.1 % (19-41); Mean Corp Hgb Conc 34.6 g/gl (32-36); Mean Corpuscular Volume 98.5 fL (80-94); Mean Platelet Vol. 9.2 fl (6.2-12.0); Monocyte# 0.56 X10^3/uL; Monocyte% 7.7 % (0-10); Neutrophil # 5.79 X10^3/uL (2.7-7.7); Neutrophil % 79.6 % (47-70); Platelet Count 220 K/mm3 (150-450); RBC Distribution Width CV 12.2 % (11.6-14.6); RBC Distribution Width SD 43.6 fl (35.1-43.9); Red Blood Count 3.88 M/mm3 (4.6-6.2); White Blood Count 7.3 K/mm3 (4.4-11.0)
[2018-08-01 06:13] LABS: International Normalized Ratio 1.5; Partial Thromboplast Time 29.5 Seconds (24.1-36.2); Prothrombin Time (Protime)PT. 17.8 SECONDS (11.7-14.9)
[2018-08-01 06:16] LABS: POSITIVE COUNT NO; POSITIVE DIFFERENTIAL NO; POSITIVE MORPHOLOGY NO
[2018-08-01] MEDS: Aspirin E.C. 81 MG Tablet PO (06:17)
[2018-08-01 06:37] LABS: Anion Gap 7 (5-15); BUN 9 mg/dL (7-18); BUN/Creat Ratio 10.8 RATIO (10-20); Calcium,Total 8.6 mg/dL (8.5-10.1); Chloride 110 mmol/L (98-107); Cholesterol 114 mg/dL (200); Creatinine, Serum 0.83 mg/dL (0.70-1.30); EST Glomerular Filtration Rate 104 mL/min (>60); Est Glom Filt Rate - Afr Amer 126 mL/min (>60); Estimated Creatinine Clearance 116.87 ml/min; Glucose 109 mg/dL (74-106); High Density Lipoprotein 37 mg/dL; Lipase 57 U/L (73-393); Potassium 4.1 mmol/L (3.5-5.1); Sodium Level 143 mmol/L (136-145); Triglycerides 97 mg/dL; Very Low Density Lipoprotein 19 mg/dL (5-40)
--- NOTE | 2018-08-01 09:24 | CASEMGMT ---
According to the [employer] website, the following are in-network tertiary facilities: [facility], [facility], [facility], [facility], [facility], [facility], [facility], [facility], and . Carola JOSE CM
[2018-08-01] MEDS: Pantoprazole Sodium 40 MG Tablet PO (10:34)
[2018-08-01] MEDS: 0.9% Normal Saline 1,000 ML 75 ML IV (10:34)
--- NOTE | 2018-08-01 12:09 | CL.D_ITS ---
Patient Name: JEREMIAS PHILLIPS Study Date: 08/01/2018 Performing: Tino Solorzano MD Ht: 72 inches 183 cm : 1970 Wt: 181 lbs 82 kg Age: 48 Gender: male BSA: 2.04 PROCEDURE(S) PERFORMED RO36-CTP/COR/LV CLINICAL PROFILE AND INDICATIONS Indications: Suspected CAD Heart Failure: None Stress/Imaging Stress/Image Study Performed: No Angina Classification Anginal Classification w/in 2 Weeks: CCS IV CAD Presentations: Unstable angina. CONCLUSIONS Elevated Left Ventricular End Diastolic Pressure Normal LV size, wall motion,and systolic function LVEF: by LV gram 65 % [place] Multivessel CAD RECOMMENDATIONS Risk factor modification Medical therapy Tertiary care center evaluation of CAD with FFR and/or IVUS DESCRIPTION OF PROCEDURE The patient arrived to the procedure lab. The risks and benefits of the procedure as well as a full d escription of our services here and current unavailability of surgical backup were fully explained to the patient and/or their significant other prior to the catheterization. The Timeout was completed, verifying the correct patient and procedure. The patient's procedural site was prepped and draped in the usual fashion. Local anesthetic was given subcutaneously to right radial region with Lidocaine 2% . Using a modified Seldinger technique, arterial access was obtained via the right radial artery, a 6 Fr sheath was inserted. Left Coronary Artery selective angiography was performed in multiple views u sing a 5 Fr. 4.0 [place] catheter. Right Coronary Artery selective angiography was then performed in mu ltiple views using a 5 Fr. JR 4 catheter. Left Ventriculography was performed in STONE projection using a 5 Fr. Pigtail catheter. 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 Patient given 10cc IA of this solution. 08/01/2018 07:53: 21 SUMMARY OF HEMODYNAMIC DATA Time AIR REST ECG 07:32:03 AO 107/61 (82) SA 07:55:48 LV 120/-15, 16 08:11:25 LV 119/-16, 17 08:11:32 LV 124/-16, 17 08:12:36 LVp 124/-16, 16 08:12:42 AOp 124/56 (80) 08:12:47 12:06:36 Signed By Tino Solorzano MD On 08/01/2018 12:08:36 Tino Solorzano MD
--- NOTE | 2018-08-01 12:10 | PN.CARD_ITS ---
Subjectve: The patient continued to have episodes of intermittent headedness diaphoresis, and nausea. He has continued, based upon his bradycardia, on his low-dose IV dopamine. The patient has undergone further evaluation with diagnostic cardiac catheterization. This procedure appeared to be accomplished without any obvious adverse events. Objective: Vital Signs Temp Pulse Resp BP Pulse Ox 97.7 F L 45 L 18 122/70 H 100 08/01/18 11:00 08/01/18 11:00 08/01/18 11:00 08/01/18 11:00 08/01/18 11:00 Oxygen Flow Rate (L/min) 2 Oxygen Delivery Method Room Air Weight: 180 lb 12.465 oz Body Mass Index (BMI) 24.5 Orthostatic Vital Signs Start: 07/31/18 18:08 Freq: q24h Status: Active Protocol: Activity Type Activity Date Activity User E-Sign Co-Sign Detail Recorded Client Recorded Date Recorded By Document 07/31/18 18:08 MIRIAM [id number] 07/31/18 18:12 DLK 07/31/18 18:08 Orthostatic Vitals Standing -Blood Pressure (90/60-120/80) 130/67 H -Extremity Use Right Arm -Pulse Rate (60-100) 53 L Sitting -Blood Pressure (90/60-120/80) 130/61 H -Extremity Use Right Arm -Pulse Rate (60-100) 47 L Lying -Blood Pressure (90/60-120/80) 129/56 H -Extremity Use Right Arm -Pulse Rate (60-100) 45 L Intake and Output for Last 24 Hours 07/30/18 07/31/18 08/01/18 23:59 23:59 23:59 Intake Total 400 / 477 409 / 409 Output Total 1100 / 1100 Balance 400 / -223 -691 / -691 General: Healthy Appearing, Awake, Alert, Oriented x 3, Cooperative, No Acute Distress HEENT: Atraumatic, Normocephalic, PERRL, EOMI, Sclera Non Icteric Oral: Moist Mucosa Neck: Supple, Good ROM, No JVD Lungs: Clear to auscultation Cardiovascular: Regular Rhythm, Normal S1, Normal S2 Vascular: No Carotid Bruits, Normal Radial Pulses Abdomen: Bowel Sounds Present, Soft, - - Positive tenderness in the epigastric area to palpation Extremities: No Cyanosis, No Clubbing, No edema Neurological: No Focal Motor or Sensory Deficit Psych/Mental Status: Appropriate 07/31/18 12:10: Troponin I < 0.015 07/31/18 12:10: D-Dimer Quant (PE/DVT) < 0.27 L 07/31/18 23:56: Troponin I < 0.015 08/01/18 02:48: Troponin I < 0.015 08/01/18 04:10: Urine Color Yellow, Urine Clarity Clear, Urine pH 6.0, Ur Specific [place] 1.015, Urine Protein Negative, Urine Glucose (UA) Normal, Urine Ketones Negative, Urine Occult Blood Negative, Urine Nitrite Negative, Urine Bilirubin Negative, Urine Urobilinogen Normal, Ur Leukocyte Esterase Negative, Urine RBC 0 SEEN, Urine WBC 0 SEEN 08/01/18 05:54: Sodium 143, Potassium 4.1, Chloride 110 H, Carbon Dioxide 26.0, Anion Gap 7, BUN 9, Creatinine 0.83, Est GFR (MDRD) Af Amer 126, Est GFR (MDRD) Non-Af 104, BUN/Creatinine Ratio 10.8, Glucose 109 H, Calcium 8.6, Magnesium 2.0, Triglycerides 97, Cholesterol 114, LDL Cholesterol 58, VLDL Cholesterol 19, HDL Cholesterol 37 L 08/01/18 05:54: WBC 7.3, RBC 3.88 L, Hgb 13.2, Hct 38.2 L, MCV 98.5 H, MCH 34.0 H, MCHC 34.6, RDW 12.2, RDW Differential 43.6, Plt Count 220, MPV 9.2, Immature Gran % (Auto) 0.100, Neut % (Auto) 79.6 H, Lymph % (Auto) 12.1 L, [place] % (Auto) 7.7, Eos % (Auto) 0.4, Baso % (Auto) 0.1, Absolute Neuts (auto) 5.8, Total Counted Not Reportable 08/01/18 05:54: Troponin I < 0.015 08/01/18 05:54: PT 17.8 H, INR 1.5, APTT 29.5 Rhythm: Sinus rhythm/sinus bradycardia EKG: Sinus rhythm/sinus bradycardia ECHO: Pending Cardiac Cath: CORONARY ANGIOGRAPHY DOMINANCE: Right Dominant LEFT HEART ASSESSMENT Left Ventricular Ejection Fraction: by LV Gram 65 % Normal LV wall motion Elevated Left Ventricular End Diastolic Pressure LVEDP: 17 mmHg LEFT MAIN: Angiographically normal LEFT ANTERIOR DESCENDING ARTERY: OSTIAL LAD: Mild calcification, 50 % Stenosis PROX LAD: Mild calcification, Mild luminal irregularities, hazy; 50 % Stenosis MID 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 CAD The patient has cardiovascular risk factors which have included a positive family history. He is not known to have a history of hypertension or diabetes mellitus. His lipid history was reviewed. His total cholesterol and LDL cholesterol appear to be 114 and 58 respectively. His HDL cholesterol is somewhat low at 37. His tobacco history includes occasional cigarettes during his college years . He has now undergone further evaluation with follow-up cardiac enzymes which have been negative. He did have a follow-up ECG performed immediately after an event of nausea/emesis which suggested sinus rhythm with concerns of possible peaked and/or hyperacute T waves. Status post resolution of his nausea/emesis event his ECG was repeated which demonstrated sinus rhythm with no acute ECG changes. He has now undergone evaluation with diagnostic cardiac catheterization. His overall left ventricular function was thought to be normal. His coronary anatomy demonstrated concerns of calcification in the ostial LAD along with angiographically concerning stenosis in the ostial LAD as well as calcification in the proximal LAD and angiographically concerning hazy stenosis in the proximal LAD. There also was an element of ostial narrowing of the LCx system and what appeared to be mild angiographic changes in the proximal RCA system (as noted on the cardiac catheterization report). At the present time his case was reviewed by the interventional section of the [facility]. Status post review of the patient's clinical course and objective findings the consensus was that the patient should be considered for tertiary care center evaluation of his CAD with consideration for FFR and/or intravascular ultrasound of his ostial/proximal LAD distribution to help guide further care be at medical or if hemodynamically significant revascularization therapy. The patient's case was discussed with the patient, his spouse, his mother, and stepfather. At the present time they were in agreement with continued observation/medical follow-up locally pending transfer to a tertiary care center for further evaluation and care. They requested transfer to [facility] for further cardiovascular evaluation. The patient's case was discussed with Dr. Marcelino Salas - Identity Access Management Architect of the [facility]. He accepted his case in transfer. 2. Lightheadedness The patient has had episodes of lightheadedness. He has noted these episodes earlier in the week as well as subsequently this afternoon/evening after being admitted to the hospital. Again the etiology is unclear as to whether or not these episodes are related to his underlying cardiovascular findings be at his underlying CAD findings and/or his cardiac dysrhythmia findings versus noncardiac issues. From a cardiac standpoint he will continue evaluation care as noted above. 3. Syncope The patient had a syncopal event while attempting to stand for his chest x-ray. It is unclear whether this was related to an underlying primary cardiovascular event including concerns of his underlying cardiac dysrhythmia with rate and rhythm changes versus another event such as a post nitroglycerin sublingual event with subsequent changes in rate and/or pressures. The patient has undergone continued noninvasive and invasive cardiac evaluation as noted above. He will continue observation and supportive therapy as deemed appropriate pending transfer to a tertiary care center for further evaluation and care. 4. Cardiac dysrhythmia The patient has had cardiac dysrhythmia demonstrating evidence of sinus rhythm, sinus bradycardia, sinus tachycardia, PACs, as well as episodes appearing compatible second-degree AV block [place] 1. It is unclear as to what the patient's baseline heart rate and rhythm is. Is unclear as to whether these findings are secondary to his cardiovascular findings with respect to underlying CAD or noncardiac issue and/or contributing to the patient's symptoms, etc. He is continuing to be monitored. He is continued on low-dose dopamine therapy. He is pending transfer to a tertiary care center for further evaluation and care. 5. Abdominal discomfort The patient has complained of abdominal discomfort to palpation in the epigastric area. He also noted following an attempt at some oral intake of fluids and medications he did have nausea and emesis. It is unclear whether these findings and subsequent events are in some way related to an ongoing cardiovascular issue versus a separate abdomin al/gastrointestinal related issue. (Of note the patient does have a history of celiac disease, however, he states he has been on his appropriate diet without any alterations recently) He will continue his cardiac evaluation as noted above. At the tertiary care center he may receive additional noncardiac evaluation from GI, etc., with respect to his abdominal discomfort, nausea/emesis, etc. 6. Celiac disease Again the patient does have celiac disease. However he states he has been on his appropriate diet with no alteration recently that he believes would be triggering any type of symptoms or concerns. 7. Migraine headaches The patient states he does have intermittent migraine headaches. He states he will have to usually sleep to have his migraine headaches past. He does note when he stays in bed too long that he becomes very uncomfortable with respect to how he feels in his thorax and his abdomen. Comment: The patient's case has been discussed and reviewed with Dr. Amador of the [facility] staff. This note was generated using a voice recognition system and there may be incorrect words, spelling or punctuation that were not noted when reviewing the office note prior to saving.
--- NOTE | 2018-08-01 12:54 | PCM.DC.SUM ---
Discharge Date and Diagnosis - Problem List Patient Problems: Active and Suspected Problems Chest pain (Acute) Syncope (Acute) Bradycardia (Acute) Hypomagnesemia (Acute) Date of Admission: 07/31/18 Date of Discharge: 08/01/18 - Primary Discharge Diagnosis Active and Suspected Problems Chest pain (Acute) Syncope (Acute) Bradycardia (Acute) Hypomagnesemia (Acute) multivessel [place] vessel CAD - Secondary Discharge Diagnosis Chronic Problems Celiac disease (Chronic) History of migraine (Chronic) Hospital Course and Treatment Imaging Results: 08/01/18 05:55 Echo Complete [ECHO] AM (NON MEDS) Clinical Impression(s) from Imaging Studies Chest X-Ray 07/31/18 04:23 IMPRESSION: Small pneumomediastinum of uncertain significance. Electronically Signed: Luis E Wu, at 6:43 EDT Tel , Service support , ADDENDUM: 07/31/[address] 07/31/18 05:23 IMPRESSION: No intracranial hemorrhage. There is no skull fracture. Electronically Signed: Luis E Wu, at 6:39 EDT Tel , Service support , ADDENDUM: 07/31/[address] 07/31/18 05:23 IMPRESSION: No acute bone injury of the cervical spine. Dissecting air bubbles are seen in the soft tissues of neck. There is small pneumomediastinum of uncertain significance. Electronically Signed: Luis E Wu, at 6:41 EDT Tel , Service support , Chest CT 07/31/18 06:49 IMPRESSION: 1. COPD without definite acute cardiopulmonary disease. 2. Mild nonspecific right-sided lateral pleural thickening is probably related to previous infection. Electronically Signed: Akilah La MD at 9:10 EDT , Service support , ADDENDUM: 07/31/18 0933 ADDENDUM: 07/31/18 2140 Foot X-Ray 07/31/18 19:05 IMPRESSION: Normal x-ray examination of the foot. Electronically Signed: Jarrod Portillo MD at 23:32 EDT , Service support , Laboratory Tests 08/01/18 08/01/18 08/01/18 Range/Units 05:54 05:54 05:54 WBC 7.3 (4.4-11.0) K/mm3 RBC 3.88 L (4.6-6.2) M/mm3 Hgb 13.2 (13.0-16.5) g/dl Hct 38.2 L (40-54) % MCV 98.5 H (80-94) fL MCH 34.0 H (27.0-32.0) pg MCHC 34.6 (32-36) g/gl RDW 12.2 (11.6-14.6) % RDW Differential 43.6 (35.1-43.9) fl Plt Count 220 (150-450) K/mm3 MPV 9.2 (6.2-12.0) fl Immature Gran % (Auto) 0.100 (0.0-0.9) % Neut % (Auto) 79.6 H (47-70) % Lymph % (Auto) 12.1 L (19-41) % [place] % (Auto) 7.7 (0-10) % Eos % (Auto) 0.4 (0-5) % Baso % (Auto) 0.1 (0-1) % Absolute Neuts (auto) 5.8 (2.0-7.7) X10^3/uL Absolute Lymphs (auto) 0.88 (0.83-4.51) X10^3/ul Total Counted Not Reportable PT 17.8 H (11.7-14.9) SECONDS INR 1.5 APTT 29.5 (24.1-36.2) Seconds D-Dimer Quant (PE/DVT) (0.27-0.49) FEU/ug/m Sodium (136-145) mmol/L Potassium (3.5-5.1) mmol/L Chloride (98-107) mmol/L Carbon Dioxide (21.0-32.0) mmol/L Anion Gap (5-15) BUN (7-18) mg/dL Creatinine (0.70-1.30) mg/dL Estim Creat Clear Calc ml/min Est GFR (MDRD) Af Amer (>60) mL/min Est GFR (MDRD) Non-Af (>60) mL/min BUN/Creatinine Ratio (10-20) RATIO Glucose (74-106) mg/dL Calcium (8.5-10.1) mg/dL Magnesium (1.6-2.6) mg/dL Total Bilirubin (0.20-1.00) mg/dL Direct Bilirubin (0.00-0.30) mg/dL AST (15-37) U/L ALT (16-61) U/L Alkaline Phosphatase (45-117) U/L Troponin I < 0.015 (<0.045) ng/mL Total Protein (6.4-8.2) g/dL Albumin (3.2-5.0) g/dL Globulin (2.2-4.2) g/dL Triglycerides ( - 199) mg/dL Cholesterol (200) mg/dL LDL Cholesterol (0-130) mg/dL VLDL Cholesterol (5-40) mg/dL HDL Cholesterol (40 - ) mg/dL Amylase (25-115) U/L Lipase (73-393) U/L TSH (0.358-3.74) uIU/mL Urine Color (Yellow) Urine Clarity (Clear) Urine pH (5.0 - 8.0) Ur Specific [place] (1.002-1.030) Urine Protein (Negative) mg/dl Urine Glucose (UA) (Normal) mg/dl Urine Ketones (Negative) mg/dl Urine Occult Blood (Negative) /ul Urine Nitrite (Negative) Urine Bilirubin (Negative) mg/dL Urine Urobilinogen (Normal) mg/dl Ur Leukocyte Esterase (Negative) /ul Urine RBC (0-5) /hpf Urine WBC (0-5) /hpf Ur Squamous Epith Cells (0-5) /hpf Urine Bacteria (None Seen) /hpf Urine Mucus (<or=2+) /hpf 08/01/18 08/01/18 08/01/18 Range/Units 05:54 04:10 02:48 WBC (4.4-11.0) K/mm3 RBC (4.6-6.2) M/mm3 Hgb (13.0-16.5) g/dl Hct (40-54) % MCV (80-94) fL MCH (27.0-32.0) pg MCHC (32-36) g/gl RDW (11.6-14.6) % RDW Differential (35.1-43.9) fl Plt Count (150-450) K/mm3 MPV (6.2-12.0) fl Immature Gran % (Auto) (0.0-0.9) % Neut % (Auto) (47-70) % Lymph % (Auto) (19-41) % [place] % (Auto) (0-10) % Eos % (Auto) (0-5) % Baso % (Auto) (0-1) % Absolute Neuts (auto) (2.0-7.7) X10^3/uL Absolute Lymphs (auto) (0.83-4.51) X10^3/ul Total Counted PT (11.7-14.9) SECONDS INR APTT (24.1-36.2) Seconds D-Dimer Quant (PE/DVT) (0.27-0.49) FEU/ug/m Sodium 143 (136-145) mmol/L Potassium 4.1 (3.5-5.1) mmol/L Chloride 110 H (98-107) mmol/L Carbon Dioxide 26.0 (21.0-32.0) mmol/L Anion Gap 7 (5-15) BUN 9 (7-18) mg/dL Creatinine 0.83 (0.70-1.30) mg/dL Estim Creat Clear Calc 116.87 ml/min Est GFR (MDRD) Af Amer 126 (>60) mL/min Est GFR (MDRD) Non-Af 104 (>60) mL/min BUN/Creatinine Ratio 10.8 (10-20) RATIO Glucose 109 H (74-106) mg/dL Calcium 8.6 (8.5-10.1) mg/dL Magnesium 2.0 (1.6-2.6) mg/dL Total Bilirubin (0.20-1.00) mg/dL Direct Bilirubin (0.00-0.30) mg/dL AST (15-37) U/L ALT (16-61) U/L Alkaline Phosphatase (45-117) U/L Troponin I < 0.015 (<0.045) ng/mL Total Protein (6.4-8.2) g/dL Albumin (3.2-5.0) g/dL Globulin (2.2-4.2) g/dL Triglycerides 97 ( - 199) mg/dL Cholesterol 114 (200) mg/dL LDL Cholesterol 58 (0-130) mg/dL VLDL Cholesterol 19 (5-40) mg/dL HDL Cholesterol 37 L (40 - ) mg/dL Amylase (25-115) U/L Lipase 57 L (73-393) U/L TSH (0.358-3.74) uIU/mL Urine Color Yellow (Yellow) Urine Clarity Clear (Clear) Urine pH 6.0 (5.0 - 8.0) Ur Specific [place] 1.015 (1.002-1.030) Urine Protein Negative (Negative) mg/dl Urine Glucose (UA) Normal (Normal) mg/dl Urine Ketones Negative (Negative) mg/dl Urine Occult Blood Negative (Negative) /ul Urine Nitrite Negative (Negative) Urine Bilirubin Negative (Negative) mg/dL Urine Urobilinogen Normal (Normal) mg/dl Ur Leukocyte Esterase Negative (Negative) /ul Urine RBC 0 SEEN (0-5) /hpf Urine WBC 0 SEEN (0-5) /hpf Ur Squamous Epith Cells 0 SEEN (0-5) /hpf Urine Bacteria 0 SEEN (None Seen) /hpf Urine Mucus 0 SEEN (<or=2+) /hpf 07/31/18 07/31/18 07/31/18 Range/Units 23:56 12:10 12:10 WBC (4.4-11.0) K/mm3 RBC (4.6-6.2) M/mm3 Hgb (13.0-16.5) g/dl Hct (40-54) % MCV (80-94) fL MCH (27.0-32.0) pg MCHC (32-36) g/gl RDW (11.6-14.6) % RDW Differential (35.1-43.9) fl Plt Count (150-450) K/mm3 MPV (6.2-12.0) fl Immature Gran % (Auto) (0.0-0.9) % Neut % (Auto) (47-70) % Lymph % (Auto) (19-41) % [place] % (Auto) (0-10) % Eos % (Auto) (0-5) % Baso % (Auto) (0-1) % Absolute Neuts (auto) (2.0-7.7) X10^3/uL Absolute Lymphs (auto) (0.83-4.51) X10^3/ul Total Counted PT (11.7-14.9) SECONDS INR APTT (24.1-36.2) Seconds D-Dimer Quant (PE/DVT) (0.27-0.49) FEU/ug/m Sodium (136-145) mmol/L Potassium (3.5-5.1) mmol/L Chloride (98-107) mmol/L Carbon Dioxide (21.0-32.0) mmol/L Anion Gap (5-15) BUN (7-18) mg/dL Creatinine (0.70-1.30) mg/dL Estim Creat Clear Calc ml/min Est GFR (MDRD) Af Amer (>60) mL/min Est GFR (MDRD) Non-Af (>60) mL/min BUN/Creatinine Ratio (10-20) RATIO Glucose (74-106) mg/dL Calcium (8.5-10.1) mg/dL Magnesium (1.6-2.6) mg/dL Total Bilirubin (0.20-1.00) mg/dL Direct Bilirubin (0.00-0.30) mg/dL AST (15-37) U/L ALT (16-61) U/L Alkaline Phosphatase (45-117) U/L Troponin I < 0.015 (<0.045) ng/mL Total Protein (6.4-8.2) g/dL Albumin (3.2-5.0) g/dL Globulin (2.2-4.2) g/dL Triglycerides ( - 199) mg/dL Cholesterol (200) mg/dL LDL Cholesterol (0-130) mg/dL VLDL Cholesterol (5-40) mg/dL HDL Cholesterol (40 - ) mg/dL Amylase 29 (25-115) U/L Lipase (73-393) U/L TSH 0.44 (0.358-3.74) uIU/mL Urine Color (Yellow) Urine Clarity (Clear) Urine pH (5.0 - 8.0) Ur Specific [place] (1.002-1.030) Urine Protein (Negative) mg/dl Urine Glucose (UA) (Normal) mg/dl Urine Ketones (Negative) mg/dl Urine Occult Blood (Negative) /ul Urine Nitrite (Negative) Urine Bilirubin (Negative) mg/dL Urine Urobilinogen (Normal) mg/dl Ur Leukocyte Esterase (Negative) /ul Urine RBC (0-5) /hpf Urine WBC (0-5) /hpf Ur Squamous Epith Cells (0-5) /hpf Urine Bacteria (None Seen) /hpf Urine Mucus (<or=2+) /hpf 07/31/18 07/31/18 07/31/18 Range/Units 12:10 12:10 07:36 WBC (4.4-11.0) K/mm3 RBC (4.6-6.2) M/mm3 Hgb (13.0-16.5) g/dl Hct (40-54) % MCV (80-94) fL MCH (27.0-32.0) pg MCHC (32-36) g/gl RDW (11.6-14.6) % RDW Differential (35.1-43.9) fl Plt Count (150-450) K/mm3 MPV (6.2-12.0) fl Immature Gran % (Auto) (0.0-0.9) % Neut % (Auto) (47-70) % Lymph % (Auto) (19-41) % [place] % (Auto) (0-10) % Eos % (Auto) (0-5) % Baso % (Auto) (0-1) % Absolute Neuts (auto) (2.0-7.7) X10^3/uL Absolute Lymphs (auto) (0.83-4.51) X10^3/ul Total Counted PT (11.7-14.9) SECONDS INR APTT (24.1-36.2) Seconds D-Dimer Quant (PE/DVT) < 0.27 L (0.27-0.49) FEU/ug/m Sodium (136-145) mmol/L Potassium (3.5-5.1) mmol/L Chloride (98-107) mmol/L Carbon Dioxide (21.0-32.0) mmol/L Anion Gap (5-15) BUN (7-18) mg/dL Creatinine (0.70-1.30) mg/dL Estim Creat Clear Calc ml/min Est GFR (MDRD) Af Amer (>60) mL/min Est GFR (MDRD) Non-Af (>60) mL/min BUN/Creatinine Ratio (10-20) RATIO Glucose (74-106) mg/dL Calcium (8.5-10.1) mg/dL Magnesium (1.6-2.6) mg/dL Total Bilirubin 0.30 (0.20-1.00) mg/dL Direct Bilirubin 0.09 (0.00-0.30) mg/dL AST 29 (15-37) U/L ALT 33 (16-61) U/L Alkaline Phosphatase 55 (45-117) U/L Troponin I < 0.015 (<0.045) ng/mL Total Protein 6.4 (6.4-8.2) g/dL Albumin 3.7 (3.2-5.0) g/dL Globulin 2.7 (2.2-4.2) g/dL Triglycerides ( - 199) mg/dL Cholesterol (200) mg/dL LDL Cholesterol (0-130) mg/dL VLDL Cholesterol (5-40) mg/dL HDL Cholesterol (40 - ) mg/dL Amylase (25-115) U/L Lipase (73-393) U/L TSH (0.358-3.74) uIU/mL Urine Color (Yellow) Urine Clarity (Clear) Urine pH (5.0 - 8.0) Ur Specific [place] (1.002-1.030) Urine Protein (Negative) mg/dl Urine Glucose (UA) (Normal) mg/dl Urine Ketones (Negative) mg/dl Urine Occult Blood (Negative) /ul Urine Nitrite (Negative) Urine Bilirubin (Negative) mg/dL Urine Urobilinogen (Normal) mg/dl Ur Leukocyte Esterase (Negative) /ul Urine RBC (0-5) /hpf Urine WBC (0-5) /hpf Ur Squamous Epith Cells (0-5) /hpf Urine Bacteria (None Seen) /hpf Urine Mucus (<or=2+) /hpf 07/31/18 07/31/18 07/31/18 Range/Units 07:36 04:20 04:20 WBC 7.6 (4.4-11.0) K/mm3 RBC 4.00 L (4.6-6.2) M/mm3 Hgb 13.7 (13.0-16.5) g/dl Hct 39.5 L (40-54) % MCV 98.8 H (80-94) fL MCH 34.3 H (27.0-32.0) pg MCHC 34.7 (32-36) g/gl RDW 11.8 (11.6-14.6) % RDW Differential 41.7 (35.1-43.9) fl Plt Count 224 (150-450) K/mm3 MPV 9.6 (6.2-12.0) fl Immature Gran % (Auto) 0.300 (0.0-0.9) % Neut % (Auto) 68.6 (47-70) % Lymph % (Auto) 19.4 (19-41) % [place] % (Auto) 8.0 (0-10) % Eos % (Auto) 3.3 (0-5) % Baso % (Auto) 0.4 (0-1) % Absolute Neuts (auto) 5.2 (2.0-7.7) X10^3/uL Absolute Lymphs (auto) 1.48 (0.83-4.51) X10^3/ul Total Counted Not Reportable PT (11.7-14.9) SECONDS INR APTT (24.1-36.2) Seconds D-Dimer Quant (PE/DVT) (0.27-0.49) FEU/ug/m Sodium 143 (136-145) mmol/L Potassium 4.1 (3.5-5.1) mmol/L Chloride 108 H (98-107) mmol/L Carbon Dioxide 27.0 (21.0-32.0) mmol/L Anion Gap 8 (5-15) BUN 10 (7-18) mg/dL Creatinine 0.97 (0.70-1.30) mg/dL Estim Creat Clear Calc 100.00 ml/min Est GFR (MDRD) Af Amer 106 (>60) mL/min Est GFR (MDRD) Non-Af 87 (>60) mL/min BUN/Creatinine Ratio 10.3 (10-20) RATIO Glucose 98 (74-106) mg/dL Calcium 8.6 (8.5-10.1) mg/dL Magnesium 1.5 L (1.6-2.6) mg/dL Total Bilirubin (0.20-1.00) mg/dL Direct Bilirubin (0.00-0.30) mg/dL AST (15-37) U/L ALT (16-61) U/L Alkaline Phosphatase (45-117) U/L Troponin I < 0.015 < 0.015 (<0.045) ng/mL Total Protein (6.4-8.2) g/dL Albumin (3.2-5.0) g/dL Globulin (2.2-4.2) g/dL Triglycerides ( - 199) mg/dL Cholesterol (200) mg/dL LDL Cholesterol (0-130) mg/dL VLDL Cholesterol (5-40) mg/dL HDL Cholesterol (40 - ) mg/dL Amylase (25-115) U/L Lipase (73-393) U/L TSH (0.358-3.74) uIU/mL Urine Color (Yellow) Urine Clarity (Clear) Urine pH (5.0 - 8.0) Ur Specific [place] (1.002-1.030) Urine Protein (Negative) mg/dl Urine Glucose (UA) (Normal) mg/dl Urine Ketones (Negative) mg/dl Urine Occult Blood (Negative) /ul Urine Nitrite (Negative) Urine Bilirubin (Negative) mg/dL Urine Urobilinogen (Normal) mg/dl Ur Leukocyte Esterase (Negative) /ul Urine RBC (0-5) /hpf Urine WBC (0-5) /hpf Ur Squamous Epith Cells (0-5) /hpf Urine Bacteria (None Seen) /hpf Urine Mucus (<or=2+) /hpf Dr. White and Dr. Tino Solorzano-cardiology Operations: None Procedures: 2-D Echocardiogram - Interpretation Summary Left ventricular systolic function is normal. The estimated ejection fraction is 65 %. Equivocal mitral valve prolapse, posterior leaflet Mild (1+) mitral valve insufficiency. Trivial tricuspid valve insufficiency. Mild focal aortic valve calcification. Trivial eccentric pulmonic valve insufficiency. 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 This was associated with some shortness of breath. He also reports that her for the past 6-week he is having some left shoulder pain. The chest heaviness gets worse when he takes a deep breath. It was somewhat relieved in the emergency department with morphine. He received 2 sublingual nitroglycerin in the emergency room and was sent to CT scan for chest x-ray. When he stood he had a syncopal episode and struck his head. Vital signs at presentation to the emergency department were temp 98.1, pulse rate 54, blood pressure 124/75, respiratory rate 16 and he was 99% saturated on room air. CBC was unremarkable. BMP was unremarkable. Magnesium was low at 5.1 and the LFTs are normal. Troponin x2 has been less than 0.015. D-dimer was negative. He has never been a smoker. He denies any history of hypertension, diabetes mellitus there is a family history of heart disease in his father. He denies any recent travel and also denies any history of VTE. There is no family history of hypercoagulable disorders. He tells me that he plays soccer 2-3 times a week and experiences no chest pain and no dyspnea on exertion. The patient does not know his cholesterol and cannot recall ever having a lipid panel checked. EKG shows normal sinus rhythm with no suspicious ST or T wave changes. Chest x-ray shows no infiltrates, pulmonary vascular congestion or pleural effusions. Brain CT showed no intracranial hemorrhage and no skull fracture. A cervical spine CT showed no acute bony injury. There were dissecting air bubbles reported in the soft tissues of the neck and a small pneumomediastinum of uncertain significance. He subsequently underwent a CTA of the chest which was negative for pneumomediastinum, negative for PE's and negative for dissection. He denies painful swallowing or dysphagia. He was admitted to a monitored bed on PCU and serial CE's were ordered. He was seen in consult by Cardiology on 07/31. Telemetry on PCU showed occasional asymptomatic bradycardia in the 30's. Cardiology recommended an ECHO and a stress test if the CE's were negative. Lipid profile showed a total cholesterol of 114, LDL of 58, HDL of 37 and triglycerides of 97. TSH was low normal at 0.44. T4 is pending at the time of discharge. He continued to c/o chest and back pain. Echocardiogram showed an ejection fraction of 65% with no diastolic dysfunction and no regional wall motion abnormalities. The right ventricle was of normal size and function. The atrial were normal size. There was equivocal mitral valve prolapse of the posterior leaflet and +1 MR. There was no evidence for diastolic dysfunction. He was taken for cardiac catheterization on 08/01/2018 and this showed an elevated left ventricular end-diastolic pressure at 17. 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 There was 25% stenosis of the ostial circumflex and 25% stenosis of the proximal RCA. There was normal aortic valve function and normal mitral valve function. Dr. Solorzano discussed the case with the interventional section of [facility] and referral to a tertiary care center for consideration for FFR and/or intravascular ultrasound of his ostial/proximal LAD distribution to help guide further care. Patient was accepted at [facility] by Dr. Marcelino Salas. PHYSICAL EXAM: GENERAL: alert, oriented X 3, Cooperative, has a furrowed brow and appears to be uncomfortable.....continues to c/o chest and back pain and also ASHBY. ORAL: moist mucosa, no mucosal lesions NECK: No JVD, supple, trachea midline LUNGS: CTA, symmetric chest expansion HEART: RRR, Normal S1 and S2, no rub, no gallop ABDOMEN: soft, NT, ND, BS present, no guarding with palpation EXTREMITIES: no edema, no cyanosis, no calf tenderness SKIN: No rashes, no breakdown NEUROLOGIC: no focal neurologic deficits PSYCH: appropriate, looks stressed This note was generated with Lumetricsation software. It may contain incorrect words, spelling, and punctuation that were not noted in checking the note before signing. Patient Problems: Active and Suspected Problems Chest pain (Acute) Syncope (Acute) Bradycardia (Acute) Hypomagnesemia (Acute) - Physical Exam Vital Signs Temp Pulse Resp BP Pulse Ox 97.7 F L 60 16 122/76 H 100 08/01/18 11:00 08/01/18 12:00 08/01/18 12:00 08/01/18 12:00 08/01/18 12:00 Oxygen Flow Rate (L/min) 2 Oxygen Delivery Method Room Air Weight: 180 lb 12.465 oz Body Mass Index (BMI) 24.5 Orthostatic Vital Signs Start: 07/31/18 18:08 Freq: q24h Status: Active Protocol: Activity Type Activity Date Activity User E-Sign Co-Sign Detail Recorded Client Recorded Date Recorded By Document 07/31/18 18:08 DLK [id number] 07/31/18 18:12 DLK 07/31/18 18:08 Orthostatic Vitals Standing -Blood Pressure (90/60-120/80 mm Hg) 130/67 H -Extremity Use Right Arm -Pulse Rate (60-100 beats/min) 53 L Sitting -Blood Pressure (90/60-120/80 mm Hg) 130/61 H -Extremity Use Right Arm -Pulse Rate (60-100 beats/min) 47 L Lying -Blood Pressure (90/60-120/80 mm Hg) 129/56 H -Extremity Use Right Arm -Pulse Rate (60-100 beats/min) 45 L Intake and Output for Last 24 Hours 07/30/18 07/31/18 08/01/18 23:59 23:59 23:59 Intake Total 400 / 477 769 / 769 Output Total 1800 / 1800 Balance 400 / -223 -1031 / -1031 Laboratory Tests Past 24 Hrs 07/31/18 07/31/18 07/31/18 12:10 12:10 12:10 WBC RBC Hgb Hct MCV MCH MCHC RDW RDW Differential Plt Count MPV Immature Gran % (Auto) Neut % (Auto) Lymph % (Auto) [place] % (Auto) Eos % (Auto) Baso % (Auto) Absolute Neuts (auto) Absolute Lymphs (auto) Total Counted PT INR APTT D-Dimer Quant (PE/DVT) < 0.27 L Sodium Potassium Chloride Carbon Dioxide Anion Gap BUN Creatinine Estim Creat Clear Calc Est GFR (MDRD) Af Amer Est GFR (MDRD) Non-Af BUN/Creatinine Ratio Glucose Calcium Magnesium Troponin I Triglycerides Cholesterol LDL Cholesterol VLDL Cholesterol HDL Cholesterol Amylase 29 Lipase TSH 0.44 Urine Color Urine Clarity Urine pH Ur Specific [place] Urine Protein Urine Glucose (UA) Urine Ketones Urine Occult Blood Urine Nitrite Urine Bilirubin Urine Urobilinogen Ur Leukocyte Esterase Urine RBC Urine WBC Ur Squamous Epith Cells Urine Bacteria Urine Mucus 07/31/18 08/01/18 08/01/18 23:56 02:48 04:10 WBC RBC Hgb Hct MCV MCH MCHC RDW RDW Differential Plt Count MPV Immature Gran % (Auto) Neut % (Auto) Lymph % (Auto) [place] % (Auto) Eos % (Auto) Baso % (Auto) Absolute Neuts (auto) Absolute Lymphs (auto) Total Counted PT INR APTT D-Dimer Quant (PE/DVT) Sodium Potassium Chloride Carbon Dioxide Anion Gap BUN Creatinine Estim Creat Clear Calc Est GFR (MDRD) Af Amer Est GFR (MDRD) Non-Af BUN/Creatinine Ratio Glucose Calcium Magnesium Troponin I < 0.015 < 0.015 Triglycerides Cholesterol LDL Cholesterol VLDL Cholesterol HDL Cholesterol Amylase Lipase TSH Urine Color Yellow Urine Clarity Clear Urine pH 6.0 Ur Specific [place] 1.015 Urine Protein Negative Urine Glucose (UA) Normal Urine Ketones Negative Urine Occult Blood Negative Urine Nitrite Negative Urine Bilirubin Negative Urine Urobilinogen Normal Ur Leukocyte Esterase Negative Urine RBC 0 SEEN Urine WBC 0 SEEN Ur Squamous Epith Cells 0 SEEN Urine Bacteria 0 SEEN Urine Mucus 0 SEEN 08/01/18 08/01/18 08/01/18 05:54 05:54 05:54 WBC 7.3 RBC 3.88 L Hgb 13.2 Hct 38.2 L MCV 98.5 H MCH 34.0 H MCHC 34.6 RDW 12.2 RDW Differential 43.6 Plt Count 220 MPV 9.2 Immature Gran % (Auto) 0.100 Neut % (Auto) 79.6 H Lymph % (Auto) 12.1 L [place] % (Auto) 7.7 Eos % (Auto) 0.4 Baso % (Auto) 0.1 Absolute Neuts (auto) 5.8 Absolute Lymphs (auto) 0.88 Total Counted Not Reportable PT INR APTT D-Dimer Quant (PE/DVT) Sodium 143 Potassium 4.1 Chloride 110 H Carbon Dioxide 26.0 Anion Gap 7 BUN 9 Creatinine 0.83 Estim Creat Clear Calc 116.87 Est GFR (MDRD) Af Amer 126 Est GFR (MDRD) Non-Af 104 BUN/Creatinine Ratio 10.8 Glucose 109 H Calcium 8.6 Magnesium 2.0 Troponin I < 0.015 Triglycerides 97 Cholesterol 114 LDL Cholesterol 58 VLDL Cholesterol 19 HDL Cholesterol 37 L Amylase Lipase 57 L TSH Urine Color Urine Clarity Urine pH Ur Specific [place] Urine Protein Urine Glucose (UA) Urine Ketones Urine Occult Blood Urine Nitrite Urine Bilirubin Urine Urobilinogen Ur Leukocyte Esterase Urine RBC Urine WBC Ur Squamous Epith Cells Urine Bacteria Urine Mucus 08/01/18 05:54 WBC RBC Hgb Hct MCV MCH MCHC RDW RDW Differential Plt Count MPV Immature Gran % (Auto) Neut % (Auto) Lymph % (Auto) [place] % (Auto) Eos % (Auto) Baso % (Auto) Absolute Neuts (auto) Absolute Lymphs (auto) Total Counted PT 17.8 H INR 1.5 APTT 29.5 D-Dimer Quant (PE/DVT) Sodium Potassium Chloride Carbon Dioxide Anion Gap BUN Creatinine Estim Creat Clear Calc Est GFR (MDRD) Af Amer Est GFR (MDRD) Non-Af BUN/Creatinine Ratio Glucose Calcium Magnesium Troponin I Triglycerides Cholesterol LDL Cholesterol VLDL Cholesterol HDL Cholesterol Amylase Lipase TSH Urine Color Urine Clarity Urine pH Ur Specific [place] Urine Protein Urine Glucose (UA) Urine Ketones Urine Occult Blood Urine Nitrite Urine Bilirubin Urine Urobilinogen Ur Leukocyte Esterase Urine RBC Urine WBC Ur Squamous Epith Cells Urine Bacteria Urine Mucus Home Medications: Medications to take at Discharge NK 07/31/18 Primary Care Physician: Franklin Mallory MD [Primary Care Provider] - Disposition: [facility] - Dr. Marcelino Salas accepting Minutes spent on discharge:: 40 Patient Condition:: Guarded Medical Necessity - Tobacco Use Smoking Status: Never smoker Tobacco Use: Non-smoker Meaningful Use Info Meaningful Use Diagnoses (Choose all that apply): None applicable Code Visit Inpatient E&M: 02146 Disch Hosp
[2018-08-01] MEDS: 0.9% NaCl Peripheral Flush Adult/Peds IV ×3 (13:07→17:16)
[2018-08-01] MEDS: Morphine 4 MG/ML Syringe IV ×2 (13:08→17:16)
[2018-08-01] MEDS: proMETHazine 25 MG/ML Syringe 12.5 MG IV (13:08)
[2018-08-01 13:47] LABS: T4 Free Direct 0.93 ng/dL (0.76-1.46)
== END 2018-08-01 19:14 | disposition short-term general hospital (02) | DRG 287 ==
LOC: ED 05:27 → PCU 11:19
PROVIDERS: Emergency Medicine; Family Medicine; Internal Medicine Cardiovascular Disease; Admitting Provider Internal Medicine; Emergency Provider Emergency Medicine; Family Provider Family Medicine; PCP Family Medicine; Referring Provider Internal Medicine; Visit Provider Internal Medicine
DX: R07.9 Chest pain, unspecified (principal); I25.10 Atherosclerotic heart disease of native coronary artery without angina pectoris; K90.0 Celiac disease; R55 Syncope and collapse; R00.1 Bradycardia, unspecified; E83.42 Hypomagnesemia; G43.909 Migraine, unspecified, not intractable, without status migrainosus; Z82.49 Family history of ischemic heart disease and other diseases of the circulatory system
CPT/HCPCS: 36415; 70450; 71045; 71260; 72125; 73630; 80048; 80061; 80076; 81001; 82150; 83690; 83735; 84439; 84443; 84484; 85025; 85379; 85610; 85730; 93005; 93306; 93458; 99152; 99153; 99285; J7030; Q9967; A4216; C1769; C1894; J2405

== ENCOUNTER → 2018-09-06 11:26 | Outpatient (CLI) | payer OTHER, SELFPAY ==
[2018-08-18 11:31] VITALS: BMI 23.7
--- NOTE | 2018-09-06 15:58 | STRESSREP_ITS ---
Stress Test Report Date: 03-09-18 Procedure: Exercise tolerance test Indications: Rated cardia; chest pain Consent: Per the patient Procedure: The patient exercised on a Sal protocol for 12 minutes completing Stage IV achieving a peak heart rate of 171 bpm (100% % predicted maximal heart rate) with a peak blood pressure 200/94 mmHg and a peak MET capacity of approximately 13 MET's. The baseline ECG demonstrated sinus bradycardia. The peak exercise ECG demonstrated somatic/motion artifact with no obvious ECG changes. There was an isolated PVC during exercise and recovery. The functional capacity was considered good. The patient had no complaint of chest discomfort during exercise or recovery. The examination was discontinued secondary to leg discomfort. Impression: 1. Technically adequate (percent predicted maximal heart rate greater than 85%) exercise tolerance test 2. Peak exercise ECG with somatic/motion artifact with no obvious ECG changes 3. There was an isolated PVC during exercise and recovery 4. Good functional capacity This note was generated with [employer] software. It may contain incorrect words, spelling, and punctuation that were not noted in checking the note before signing.
== END ==
PROVIDERS: Family Provider Family Medicine; PCP Family Medicine; Referring Provider Internal Medicine Cardiovascular Disease; Visit Provider Internal Medicine Cardiovascular Disease
DX: R00.1 Bradycardia, unspecified (principal); R07.9 Chest pain, unspecified
CPT/HCPCS: 93017

== ENCOUNTER → 2018-11-17 15:39 | Outpatient (CLI) | payer OTHER, SELFPAY ==
[2018-08-18 11:31] VITALS: BMI 23.7
--- NOTE | 2018-11-17 15:48 | BD_ITS ---
STUDY: DUAL ENERGY X-RAY ABSORPTIOMETRY / DXA REASON FOR EXAM: Male, 48 years old. Celiac disease. Loss of height. TECHNIQUE: Bone Mineral Density (BMD) measurements of lumbar spine and bilateral hips were obtained. COMPARISON: None. FINDINGS: Lumbar Spine (L1-L4): g/cm2 (1.111) / T-score (-0.9) / Z-score (-0.7) Findings are suggestive of normal bone density with a low fracture risk. Left Femur Total: g/cm2 (1.021) / T-score (-0.6) / Z-score (-0.2) Left Femoral Neck: g/cm2 (1.005) / T-score (-0.5) / Z-score (0.1) Right Femur Total: g/cm2 (1.025) / T-score (-0.5) / Z-score (-0.2) Right Femoral Neck: g/cm2 (1.095) / T-score (0.2) / Z-score (0.8) BD/Dexa Bone Density Study IMPRESSION: The patient is considered normal as outlined below according to World Jones Organization (WHO) criteria with a low fracture risk. Reference Information: The T-score is the number of standard deviations above or below the standard which is normal for young adults at their peak bone mineral density. The World Health Organization (WHO) interprets the T-scores as follows: Above -1 Normal bone density Between -1 and -2.5 Osteopenia Equal to / or below -2.5 Osteoporosis As a practical clinical guideline, osteopenia may be graded as follows: Mild -1 through -1.5 Moderate -1.6 through -2.0 Severe -2.1 through -2.4 The Z-score is the number of standard deviations above or below age-matched controls. A Z-score of less than -1.5 would be considered abnormal. References: 1. NIH Osteoporosis and Related Bone Diseases http://www.osteo.org 2. International Society for Clinical Densitometry http://www.iscd.org 3. National Osteoporosis Foundation http://www.nof.org Electronically Signed: Faizan Renteria, at 15:02 EDT , Service support ,
== END ==
PROVIDERS: Family Provider Family Medicine; PCP Family Medicine; Referring Provider Internal Medicine Gastroenterology; Visit Provider Internal Medicine Gastroenterology
DX: K90.0 Celiac disease (principal)
CPT/HCPCS: 77080

== ENCOUNTER → 2019-02-23 13:23 | Outpatient (CLI) | payer OTHER, SELFPAY ==
[2018-08-18 11:31] VITALS: BMI 23.7
--- NOTE | 2019-02-23 13:27 | RAD_ITS ---
STUDY: X-RAY - RIGHT SCAPULA REASON FOR EXAM: Male, 48 years old. RIGHT SHOULDER PAIN X4 MONTHS -- NO KNOWN INJURY TECHNIQUE: 2 view(s) of the scapula were obtained. COMPARISON: None. FINDINGS: Normal scapula, including the osseous glenoid rim, acromion, scapular neck, spine, coracoid process, and visualized body. Normal glenohumeral articulation. Normal acromioclavicular joint. Normal visualized humeral head. Normal visualized pulmonary apex. RAD/Scapula IMPRESSION: Normal plain film x-ray examination of the scapula. Electronically Signed: Sebas Sanford MD at 22:12 EST , Service support ,
--- NOTE | 2019-02-23 13:35 | RAD_ITS ---
STUDY: X-RAY - RIGHT SHOULDER REASON FOR EXAM: Male, 48 years old. RIGHT SHOULDER PAIN X4 MONTHS -- NO KNOWN INJURY TECHNIQUE: 4 view(s) of the shoulder. COMPARISON: None. FINDINGS: Normal glenohumeral articulation. Normal acromioclavicular joint. Normal acromion. Normal humeral head and visualized proximal humerus. The soft tissue structures are unremarkable. Normal visualized pulmonary apex. RAD/Shoulder min 2 Views IMPRESSION: Normal x-ray examination of the shoulder. Electronically Signed: Sebas Sanford MD at 22:15 EST , Service support ,
== END ==
PROVIDERS: Family Provider Family Medicine; PCP Family Medicine; Referring Provider Family Medicine; Visit Provider Family Medicine
DX: M25.511 Pain in right shoulder (principal); M89.8X1 Other specified disorders of bone, shoulder
CPT/HCPCS: 73010; 73030

== ENCOUNTER → 2019-03-01 15:30 | Outpatient (CLI) | payer OTHER, SELFPAY ==
[2018-08-18 11:31] VITALS: BMI 23.7
--- NOTE | 2019-03-01 15:35 | RAD_ITS ---
STUDY: X-RAY CHEST REASON FOR EXAM: Male, 48 years old. patient complains of right shoulder pain and right chest pain TECHNIQUE: Frontal and lateral views of the chest were performed COMPARISON: None. FINDINGS: The lungs are clear and expanded. There is no demonstrated pleural abnormality. Normal size heart. Normal mediastinum and kapil. Normal visualized pulmonary arteries. Normal visualized aortic arch and descending thoracic aorta. There is pectus carinatum deformity There is no demonstrated abnormality of the visualized soft tissue structures of the upper abdomen. Appearance is stable since prior. RAD/Chest PA and Lateral IMPRESSION: No acute cardio respiratory disease. No change since priors. Electronically Signed: Christiano Naranjo, at 19:55 EST Tel , Service support ,
== END ==
PROVIDERS: PCP Family Medicine; Referring Provider Family Medicine; Visit Provider Family Medicine
DX: R07.9 Chest pain, unspecified (principal); R07.89 Other chest pain
CPT/HCPCS: 71046

== ENCOUNTER → 2021-11-01 | Outpatient (CLI) | payer OTHER, SELFPAY ==
[2021-11-01 08:40] LABS: AST(SGOT) 20 U/L (15-37); Alanine Aminotransfer ALT/SGPT 28 U/L (16-61); Albumin, Serum 4.3 g/dL (3.2-5.0); Alkaline Phosphatase 65 U/L (45-117); Bilirubin, Direct 0.29 mg/dL (0.00-0.30); Cholesterol 172 mg/dL (200); Globulin 3.3 g/dL (2.2-4.2); High Density Lipoprotein 55 mg/dL; Protein, Total 7.6 g/dL (6.4-8.2); Triglycerides 84 mg/dL; Very Low Density Lipoprotein 17 mg/dL (5-40)
== END | disposition home or self-care (01) ==
LOC: LAB 07:49
PROVIDERS: Referring Provider Internal Medicine Cardiovascular Disease; Visit Provider Internal Medicine Cardiovascular Disease
DX: I25.110 Atherosclerotic heart disease of native coronary artery with unstable angina pectoris (principal); E78.5 Hyperlipidemia, unspecified
CPT/HCPCS: 36415; 80061; 80076

== ENCOUNTER 2021-12-14 13:00 | Emergency (ER) | payer OTHER, SELFPAY ==
[2021-12-14 13:01] VITALS: BP 125/71; PULSE 65; RESP 14; TEMP 35.9; O2SAT 100; BMI 24.7
--- NOTE | 2021-12-14 13:04 | EKG12_ITS ---
Test Reason : GENERAL Blood Pressure : / mmHG Vent. Rate : 063 BPM Atrial Rate : 063 BPM P-R Int : 180 ms QRS Dur : 104 ms QT Int : 438 ms P-R-T Axes : 062 000 058 degrees QTc Int : 448 ms Normal sinus rhythm Normal ECG Confirmed by RADHA DUGAN, TOM ([id number]), online content editor PORSHA MARTINO ([id number]) on 12/17/2021 11:25:07 AM Referred By: Confirmed By:TOM GARCIA MD
--- NOTE | 2021-12-14 13:04 | RAD_ITS ---
STUDY: X-RAY CHEST REASON FOR EXAM: Male, 51 years old. Weakness TECHNIQUE: 2 AP portable views COMPARISON: 03/01/2019 FINDINGS: EKG leads overlie the chest The lungs are clear and expanded. There is no demonstrated pleural abnormality. Normal size heart. Normal mediastinum and kapil. Normal visualized pulmonary arteries. Normal visualized aortic arch and descending thoracic aorta. Normal visualized thoracic spine. Normal visualized ribs, clavicles, and shoulders. There is no demonstrated abnormality of the visualized soft tissue structures of the upper abdomen. RAD/Chest 1 View (Portable) IMPRESSION: Normal x-ray examination of the chest. Electronically Signed: Aly Murphy MD at 13:52 EST ,
--- NOTE | 2021-12-14 13:06 | CT_ITS ---
STUDY: CT BRAIN WITHOUT CONTRAST REASON FOR EXAM: Male, 51 years old. Weakness. Headache RADIATION DOSAGE (If Supplied By Facility): CTDIvol = ( 44.99 ) mGy, DLP = ( 914.22 ) mGycm TECHNIQUE: Transaxial CT imaging of the brain was performed without administration of intravenous contrast material. Individualized dose optimization techniques were used for this CT. COMPARISON: 07/31/2018 FINDINGS: Normal soft tissue structures. Normal calvarium. Normal size ventricles and extra-axial spaces for the patient''s age. Normal white matter tracts of the cerebral hemispheres. Normal basal ganglia and thalami. Normal brainstem. Normal cerebellum. There is no intracranial hemorrhage. There are no findings of an acute ischemic infarction. There are postsurgical changes of the maxillary sinuses. There is mild opacification of the ethmoid and maxillary sinuses. CT/Brain/Head without Contrast IMPRESSION: No acute intracranial process. Mild opacification of the ethmoid and maxillary sinuses consistent with a history of sinusitis. Electronically Signed: Lorraine Tucker MD at 14:22 EST ,
--- NOTE | 2021-12-14 13:07 | EX.ED.DYSGE1 ---
HPI History of Present Illness Chief Complaint: General Illness Narrative Narrative: [id number] male presenting via EMS. He appears to be confused. EMS states he was at home and there was some concern for a possible seizure. On their arrival they checked a blood sugar and it was in the 140s. Patient was alert and talking but did seem confused for them. No seizure activity was noted by them. They received this information from his . His then showed up in the room and stated that he had not been feeling well this morning. He had been feeling chills and body aches and did not feel well. She states that he went to lay down and then later called her into the room and wanted to take a bath. After bathing she notes that she tried to get him to lay back down and he went the wrong direction away from the bedroom and he seemed confused. After this she states that he went into the position with his arms up against his chest. She did not see any tonic-clonic activity. He did seem to be more confused about that time and started drooling. states that he was sweating profusely. She states that after a few minutes he started to be more combative with her. He has no history of seizures. His only complaint currently is that he has a headache and nausea. He has a history of migraines and this is a typical migrainous headache for him. He does not have any chest pain or shortness of breath. He denies abdominal pain. His does state that she felt like he was having an anxiety attack prior to the confusion and weakness episode. The patient agrees at this point that he does have history of anxiety with panic attack this bad. He is not on any medications. He has not followed up with anybody for this. He states it is escalating. [facility] Medical History Anxiety Atherosclerotic heart disease of [place] coronary artery with unstable angina pectoris Bradycardia Celiac disease Chest pain Esophageal ulcer History of left heart catheterization (LHC) (~08/01/18) History of left heart catheterization (LHC) (~08/03/18) History of migraine Hypomagnesemia Mixed hyperlipidemia Syncope Home Medications magnesium 200 mg tablet 200 mg PO TID 11/03/21 [History Last Taken Unknown] nitroglycerin 0.4 mg sublingual tablet 0.4 mg sublingual Q5-15M PRN chest pain #25 tabs 11/03/21 [Rx Last Taken Unknown] hydroxyzine pamoate 25 mg capsule (Vistaril) 25 mg PO TID PRN anxiety #30 caps 12/14/21 [Rx Last Taken Unknown] Allergy/AdvReac Type Severity Reaction Status Date / Time No Known Allergies Allergy Verified 12/14/21 13:01 Family History Father Myocardial infarction, Onset Age: 50 Pericarditis Grandfather CAD (coronary artery disease) Myocardial infarction Mother Macular degeneration Surgical History History of facial surgery History of oral surgery Social History Smoking Status: Never smoker alcohol intake: current details: occasional substance use type: does not use caffeine: Yes Type: carbonated beverages Number of servings: 1 and coffee Number of servings: 1 ROS ROS ED Constitutional Constitutional ED: Reports chills and sweats Eyes Eyes: Denies change in vision or diplopia ENT ENT ED: Denies rhinorrhea or sore throat EXAM Physical Exam Const Vital Signs: 12/14/21 13:01 12/14/21 13:10 12/14/21 15:05 Temperature 96.7 F L Temperature Source Temporal Pulse Rate 65 60 Respiratory Rate 14 15 Respiratory Effort Normal Respiratory Pattern Normal Blood Pressure 125/71 H 145/83 H Blood Pressure Mean 89 103 Pulse Ox 100 98 Oxygen Delivery Method Room Air Nasal Cannula Oxygen Flow Rate (L/min) 3 Positive well nourished HEENT Reports dry mucous membranes Mouth ED: Yes dry mucous membranes Mouth: dry mucous membranes Eyes PERRL and EOMs intact bilaterally General Eye ED: Negative for pale conjunctiva or scleral icterus Neck no lymphadenopathy Chest Wall inspection of chest normal and palpation of chest normal Resp clear to auscultation bilaterally Cardio regular rate and regular rhythm GI normal to inspection, nondistended, normoactive bowel sounds Extremity normal to inspection Neuro oriented x3 and CN's II-XII intact bilaterally Sensorium / Orientation: alert Motor Exam: strength 5/5 throughout Psych Psych Narrative: Awake, alert, able to answer questions. Skin no rashes or lesions noted and no wounds MDM MDM MDM Narrative Medical decision making narrative: Patient presenting with generalized weakness and altered mental status. Apparently he was having some kind of panic attack prior to the episode beginning. He states he has a history of this in the past which has progressively getting getting worse. He states this is the worst when I had. He had a headache and nausea on arrival. He was treated with Reglan and Benadryl. does describe him being in the position but does not describe any tonic-clonic activity and although he was agitated after this he did not appear to have a postictal state. She states he was aggressive. Patient did appear to be diaphoretic on initial evaluation but he is awake and alert and talking. No focal neurologic deficits. Patient was put on seizure precautions but he did not have any return of any symptoms like he did at home. CBC within normal limits. CMP shows elevated total bilirubin at 1.1 but he has had this in the past. His LFTs were otherwise normal. Creatinine elevated at 1.46 and his previous was 0.83. Ammonia level was slightly elevated at 43. Urinalysis is negative. Urine drug screen positive for cannabinoids. EKG was obtained and is interpreted by myself as normal sinus rhythm ventricular rate of 60 bpm without sign of ischemic change or dysrhythmia. Chest x-ray my interpretation is no acute cardiopulmonary process and the radiologist interprets this and agrees. High-sensitivity troponin is 5. CT of the brain is obtained and is negative for acute intercranial findings. I do not believe the patient had a seizure I think this is more anxiety and the patient displays well. She was sent reevaluation at 3:50 PM the patient feels well and wants to go home. I think is reasonable. He states he would like to go his insurance plan to primary care provider. He states he used to see Dr. Dixon but has not seen a doctor here in our long time. He was counseled on all lab work and return precautions were discussed. Impression: 1. Altered mental status resolved 2. Panic attack 3. Elevated creatinine 4. Elevated ammonia level Lab Data Attestation: I reviewed the patient's lab results. Labs: Laboratory Results - last 24 hr 12/14/21 12/14/21 12/14/21 13:15 13:15 13:15 WBC 10.9 RBC 4.15 L Hgb 14.6 Hct 42.3 MCV 101.9 H MCH 35.2 H MCHC 34.5 RDW Std Deviation 45.9 H RDW Coeff of [place] 12.1 Plt Count 300 MPV 9.8 Immature Gran % (Auto) 1.400 H Neut % (Auto) 86.7 H Lymph % (Auto) 9.0 L [place] % (Auto) 2.6 Eos % (Auto) 0.0 Baso % (Auto) 0.3 Absolute Neuts (auto) 9.4 H Absolute Lymphs (auto) 0.98 Nucleated RBC % 0 Sodium 138 Potassium 3.8 Chloride 103 Carbon Dioxide 20.0 L Anion Gap 15 BUN 12 Creatinine 1.46 H Estim Creat Clear Calc 64.22 Est GFR (MDRD) Af Amer 65 Est GFR (MDRD) Non-Af 54 L BUN/Creatinine Ratio 8.2 L Glucose 185 H Calcium 9.3 Total Bilirubin 1.10 H AST 29 ALT 34 Alkaline Phosphatase 77 Ammonia Troponin I High Sens 5 Total Protein 7.7 Albumin 4.5 Globulin 3.2 Albumin/Globulin Ratio 1.4 Lipase 89 Urine Color Urine Clarity Urine pH Ur Specific [place] Urine Protein Urine Glucose (UA) Urine Ketones Urine Occult Blood Urine Nitrite Urine Bilirubin Urine Urobilinogen Ur Leukocyte Esterase Urine RBC Urine WBC Ur Squamous Epith Cells Urine Bacteria Urine Mucus Urine Opiates Screen Urine Methadone Screen Ur Barbiturates Screen Ur Phencyclidine Scrn Ur Amphetamines Screen MDMA (Ecstasy) Screen U Benzodiazepines Scrn Urine Cocaine Screen U Cannabinoids Screen Ur Drug Screen Comment Ethyl Alcohol < 3.0 12/14/21 12/14/21 12/14/21 13:22 14:29 14:29 WBC RBC Hgb Hct MCV MCH MCHC RDW Std Deviation RDW Coeff of [place] Plt Count MPV Immature Gran % (Auto) Neut % (Auto) Lymph % (Auto) [place] % (Auto) Eos % (Auto) Baso % (Auto) Absolute Neuts (auto) Absolute Lymphs (auto) Nucleated RBC % Sodium Potassium Chloride Carbon Dioxide Anion Gap BUN Creatinine Estim Creat Clear Calc Est GFR (MDRD) Af Amer Est GFR (MDRD) Non-Af BUN/Creatinine Ratio Glucose Calcium Total Bilirubin AST ALT Alkaline Phosphatase Ammonia 43.0 H Troponin I High Sens Total Protein Albumin Globulin Albumin/Globulin Ratio Lipase Urine Color Yellow Urine Clarity Clear Urine pH 5.0 Ur Specific [place] 1.025 Urine Protein 30 H Urine Glucose (UA) Normal Urine Ketones 50 H Urine Occult Blood 25 H Urine Nitrite Negative Urine Bilirubin Negative Urine Urobilinogen Normal Ur Leukocyte Esterase Negative Urine RBC 0 SEEN Urine WBC 0 SEEN Ur Squamous Epith Cells 0 SEEN Urine Bacteria 0 SEEN Urine Mucus 0 SEEN Urine Opiates Screen NEGATIVE Urine Methadone Screen NEGATIVE Ur Barbiturates Screen NEGATIVE Ur Phencyclidine Scrn NEGATIVE Ur Amphetamines Screen NEGATIVE MDMA (Ecstasy) Screen NEGATIVE U Benzodiazepines Scrn NEGATIVE Urine Cocaine Screen NEGATIVE U Cannabinoids Screen POSITIVE H Ur Drug Screen Comment Ethyl Alcohol Radiography Diagnostic Testing: Clinical Impression(s) from Imaging Studies Chest X-Ray 12/14/21 13:04 IMPRESSION: Normal x-ray examination of the chest. Electronically Signed: Aly Murphy MD at 13:52 EST , Brain CT 12/14/21 13:06 IMPRESSION: No acute intracranial process. Mild opacification of the ethmoid and maxillary sinuses consistent with a history of sinusitis. Electronically Signed: Lorraine Tucker MD at 14:22 EST , Discharge Plan Triage Chief Complaint: General Illness ED Provider: Lucien Yung Dx/Rx/DC Orders Instructions: ED Confusion, ED Panic Attack Prescriptions: New hydroxyzine pamoate [Vistaril] 25 mg capsule 25 mg PO TID PRN (Reason: anxiety) Qty: 30 0RF No Action magnesium 200 mg tablet 200 mg PO TID nitroglycerin 0.4 mg tablet, sublingual 0.4 mg SUBLINGUAL Q5-15M PRN (Reason: chest pain) Qty: 25 3RF Primary Care Provider: Care Physician,No Primary Referrals: Care Physician,No Primary [Primary Care Provider] - Disposition Disposition: Home, Self Care
[2021-12-14] MEDS: 0.9% Normal Saline 1,000 ML 1000 ML IV (13:30)
[2021-12-14] MEDS: Metoclopramide 10 MG/2 ML Vial IV (13:30)
[2021-12-14] MEDS: DiphenhydrAMINE 50 MG/ML Syringe 25 MG IV (13:30)
[2021-12-14 13:34] LABS: Absolute Lymphocyte Count 0.98 X10^3/uL (0.83-4.51); Absolute Neutrophil Count 9.4 X10^3/uL (2.0-7.7); Basophil# 0.03 X10^3/uL; Basophil% 0.3 % (0-1); Hematocrit 42.3 % (40-54); Hemoglobin 14.6 g/dL (13.0-16.5); Lymphocyte # 0.98 X10^3/ul (0.83-4.51); Mean Corp Hgb Conc 34.5 g/dL (32-36); Mean Corpuscular Hgb 35.2 pg (27.0-32.0); Mean Corpuscular Volume 101.9 fL (80-94); Mean Platelet Vol. 9.8 fl (6.2-12.0); Monocyte# 0.28 X10^3/uL; Monocyte% 2.6 % (0-10); NRBC Flagged by Analyzer 0 % (0-5); Neutrophil # 9.42 X10^3/uL (2.7-7.7); Neutrophil % 86.7 % (47-70); Platelet Count 300 K/mm3 (150-450); RBC Distribution Width CV 12.1 % (11.6-14.6); RBC Distribution Width SD 45.9 fl (35.1-43.9); Red Blood Count 4.15 M/mm3 (4.6-6.2); White Blood Count 10.9 K/mm3 (4.4-11.0)
[2021-12-14 13:42] LABS: Alcohol, Blood (Medical)-Serum < 3.0 mg/dL
[2021-12-14 13:47] LABS: ALB/GLOB Ratio 1.4 RATIO (0.9-2.4); AST(SGOT) 29 U/L (15-37); Alanine Aminotransfer ALT/SGPT 34 U/L (16-61); Albumin, Serum 4.5 g/dL (3.2-5.0); Alkaline Phosphatase 77 U/L (45-117); Anion Gap 15 (5-15); BUN 12 mg/dL (7-18); BUN/Creat Ratio 8.2 RATIO (10-20); Calcium,Total 9.3 mg/dL (8.5-10.1); Chloride 103 mmol/L (98-107); Creatinine, Serum 1.46 mg/dL (0.70-1.30); EST Glomerular Filtration Rate 54 mL/min (>60); Est Glom Filt Rate - Afr Amer 65 mL/min (>60); Estimated Creatinine Clearance 64.22 ml/min; Globulin 3.2 g/dL (2.2-4.2); Glucose 185 mg/dL (74-106); Lipase 89 U/L (73-393); Potassium 3.8 mmol/L (3.5-5.1); Protein, Total 7.7 g/dL (6.4-8.2); Sodium Level 138 mmol/L (136-145); Troponin-I HS 5 pg/mL (3.0-78.0)
[2021-12-14 14:33] LABS: Bacteria 0 SEEN /hpf (None Seen); Mucous, Urine 0 SEEN /hpf (<or=2+); Red Blood Cells-Urine 0 SEEN /hpf (0-5); Squamous Epithelial Cells - UA 0 SEEN /hpf (0-5); White Blood Cells 0 SEEN /hpf (0-5)
[2021-12-14] MEDS: 0.9% Normal Saline 1,000 ML 999 ML IV (14:37)
[2021-12-14 14:39] LABS: Color, Urine Yellow (Yellow); Glucose, Dipstick Normal (Normal); Ketone-Dipstick 50 mg/dl (Negative); Leukocyte Esterase-Dipstick Negative /ul (Negative); Nitrite-Dipstick Negative (Negative); Occult Blood-Urine 25 /ul (Negative); Protein-Dipstick 30 mg/dl (Negative); Specific Gravity, Urine 1.025 (1.002-1.030); Urine Bilirubin Dipstick Negative (Negative); Urine Clarity Clear (Clear); Urine Urobilinogen Normal (Normal)
[2021-12-14 14:54] LABS: Amphetamine Urine VISTA NEGATIVE (<1000 ng/mL); Barbiturate Urine VISTA NEGATIVE (< 200 ng/mL); Benzodiazepine Urine VISTA NEGATIVE (< 200 ng/mL); Cocaine Urine VISTA NEGATIVE (< 300 ng/mL); Ecstacy Urine VISTA NEGATIVE (< 500 ng/mL); Methadone Urine VISTA NEGATIVE (< 300 ng/mL); PCP Urine VISTA NEGATIVE (< 25 ng/mL); THC Urine VISTA POSITIVE (< 50 ng/mL); Vista UDS pH Range 5
--- NOTE | 2021-12-14 15:02 | ED.RN ---
PT GIVEN WARM BLANKET
[2021-12-14 15:05] VITALS: BP 145/83; PULSE 60; RESP 15; O2SAT 98
[2021-12-14 16:15] VITALS: BP 146/77; PULSE 67; RESP 15; O2SAT 98
== END 2021-12-14 16:19 | disposition home or self-care (01) ==
PROVIDERS: Emergency Provider Student in an Organized Health Care Education/Training Program; Visit Provider Student in an Organized Health Care Education/Training Program
DX: F41.0 Panic disorder [episodic paroxysmal anxiety] (principal); R51.9 Headache, unspecified; R11.0 Nausea; R41.82 Altered mental status, unspecified; R79.89 Other specified abnormal findings of blood chemistry; I25.10 Atherosclerotic heart disease of native coronary artery without angina pectoris; Z79.899 Other long term (current) drug therapy
CPT/HCPCS: 70450; 71045; 80053; 80307; 81001; 82077; 82140; 83690; 84484; 85025; 87428; 93005; 96361; 96374; 96375; 99285; J7030

== ENCOUNTER → 2021-12-19 | Outpatient (CLI) | payer OTHER, SELFPAY ==
[2021-12-19 15:16] LABS: Bacteria 0 SEEN /hpf (None Seen); Mucous, Urine 0 SEEN /hpf (<or=2+); Red Blood Cells-Urine 0 SEEN /hpf (0-5); Squamous Epithelial Cells - UA 0 SEEN /hpf (0-5); White Blood Cells 0 SEEN /hpf (0-5)
[2021-12-19 16:30] LABS: Absolute Lymphocyte Count 1.56 X10^3/uL (0.83-4.51); Absolute Neutrophil Count 2.7 X10^3/uL (2.0-7.7); Basophil# 0.04 X10^3/uL; Basophil% 0.8 % (0-1); Eosinophil# 0.25 X10^3/uL; Eosinophils% 4.9 % (0-5); Lymphocyte # 1.56 X10^3/ul (0.83-4.51); Lymphocyte % 30.7 % (19-41); Mean Corp Hgb Conc 34.1 g/dL (32-36); Mean Corpuscular Hgb 35.1 pg (27.0-32.0); Mean Corpuscular Volume 102.8 fL (80-94); Monocyte# 0.57 X10^3/uL; Monocyte% 11.2 % (0-10); NRBC Flagged by Analyzer 0 % (0-5); Neutrophil # 2.65 X10^3/uL (2.7-7.7); Neutrophil % 52.2 % (47-70); Platelet Count 297 K/mm3 (150-450); RBC Distribution Width CV 12.2 % (11.6-14.6); RBC Distribution Width SD 46.5 fl (35.1-43.9); Red Blood Count 3.99 M/mm3 (4.6-6.2); White Blood Count 5.1 K/mm3 (4.4-11.0)
[2021-12-19 16:39] LABS: Color, Urine Yellow (Yellow); Glucose, Dipstick Normal (Normal); Ketone-Dipstick Negative (Negative); Leukocyte Esterase-Dipstick Negative /ul (Negative); Nitrite-Dipstick Negative (Negative); Occult Blood-Urine Negative /ul (Negative); Protein-Dipstick Negative (Negative); Urine Bilirubin Dipstick Negative (Negative); Urine Clarity Clear (Clear); Urine Urobilinogen Normal (Normal)
[2021-12-19 16:52] LABS: Vitamin B12 525 pg/mL (211-911)
[2021-12-19 17:06] LABS: ALB/GLOB Ratio 1.3 RATIO (0.9-2.4); AST(SGOT) 43 U/L (15-37); Alanine Aminotransfer ALT/SGPT 43 U/L (16-61); Albumin, Serum 4.1 g/dL (3.2-5.0); Alkaline Phosphatase 66 U/L (45-117); Anion Gap 6 (5-15); BUN 12 mg/dL (7-18); BUN/Creat Ratio 11.4 RATIO (10-20); Calcium,Total 8.8 mg/dL (8.5-10.1); Chloride 106 mmol/L (98-107); Creatinine, Serum 1.05 mg/dL (0.70-1.30); EST Glomerular Filtration Rate 78 mL/min (>60); Est Glom Filt Rate - Afr Amer 95 mL/min (>60); Globulin 3.2 g/dL (2.2-4.2); Glucose 87 mg/dL (74-106); Magnesium 2.4 mg/dL (1.6-2.6); Potassium 4.1 mmol/L (3.5-5.1); Protein, Total 7.3 g/dL (6.4-8.2); Sodium Level 141 mmol/L (136-145); Thyroid Stim Hormone (TSH) 1.05 uIU/mL (0.358-3.74)
== END | disposition home or self-care (01) ==
LOC: BIMLAB 15:01
PROVIDERS: PCP Nurse Practitioner Family; Referring Provider Nurse Practitioner Family; Visit Provider Nurse Practitioner Family
DX: R41.82 Altered mental status, unspecified (principal); R56.9 Unspecified convulsions; F41.9 Anxiety disorder, unspecified; D53.9 Nutritional anemia, unspecified; R79.89 Other specified abnormal findings of blood chemistry
CPT/HCPCS: 36415; 80053; 81001; 82140; 82607; 82746; 83036; 83735; 84443; 85025

== ENCOUNTER → 2022-01-07 | Outpatient (CLI) | payer OTHER, SELFPAY ==
--- NOTE | 2022-01-07 06:26 | MRI_ITS ---
EXAM: MR HEAD WITHOUT AND WITH INTRAVENOUS CONTRAST CLINICAL INDICATION: witnessed seizure like activity, hx migraines TECHNIQUE: Multiplanar and multisequence MR images of the brain were obtained without and with intravenous contrast. This report was created using [employer] report sliceX technology. CONTRAST: IV 15ml Clariscan COMPARISON: CT head without contrast 12/14/2021. FINDINGS: BRAIN AND EXTRA-AXIAL SPACES: No focal signal abnormalities throughout the brain parenchyma. No abnormal enhancing lesions intra-axially and extra-axially. No mass effects and no midline shift. No intra- or extra-axial hemorrhage. No evidence of acute infarct. There is preservation of the hendrickson/white matter interface. Posterior fossa structures are unremarkable. Ventricles are appropriate for age. No hydrocephalus. Basal cisterns are patent. SELLA: Unremarkable. Normal sella turcica, pituitary gland, infundibular stalk, optic chiasm and hypothalamus. AUDITORY SYSTEM: Unremarkable. The internal auditory canals are patent. BONES/JOINTS: Unremarkable. No discrete lytic or blastic abnormalities. SINUSES: Minimal mucosal edema in the frontal sinuses and anterior ethmoid sinuses. Normal remaining paranasal sinuses. MASTOID AIR CELLS: Unremarkable as visualized. Clear. ORBITS: Unremarkable as visualized. Both globes, extraocular muscles, optic nerves and retrobulbar fat appear unremarkable. VASCULATURE: Unremarkable as visualized. Normal flow voids in the major intracranial circulation. MRI/Brain W/WO Contrast IMPRESSION: 1. Normal MRI brain with and without contrast. 2. Minimal mucosal edema in the frontal sinuses and anterior ethmoid sinuses. Electronically Signed: Jose York MD at 11:45 EST ,
== END | disposition home or self-care (01) ==
LOC: MRI 06:26
PROVIDERS: PCP Internal Medicine; Referring Provider Nurse Practitioner Family; Visit Provider Nurse Practitioner Family
DX: R41.82 Altered mental status, unspecified (principal)
CPT/HCPCS: 70553; A9575

== ENCOUNTER → 2022-01-15 | Outpatient (CLI) | payer OTHER, SELFPAY ==
--- NOTE | 2022-01-15 10:41 | TELEMED_ITS ---
[facility] has confirmed receipt of a request for visit. This document confirms receipt of the order initiating the consult. To find the results of the consultation, please view the patient's reports for the scanned Telemed Consult.
== END | disposition home or self-care (01) ==
LOC: PSN 08:13
PROVIDERS: PCP Internal Medicine; Referring Provider Nurse Practitioner Family; Visit Provider Nurse Practitioner Family
DX: R56.9 Unspecified convulsions (principal); R41.82 Altered mental status, unspecified
CPT/HCPCS: 95819

== ENCOUNTER → 2022-04-15 | Outpatient (CLI) | payer OTHER, SELFPAY ==
[2022-04-15 12:53] LABS: Absolute Lymphocyte Count 0.88 X10^3/uL (0.83-4.51); Basophil# 0.05 X10^3/uL; Basophil% 1.5 % (0-1); Eosinophil# 0.18 X10^3/uL; Eosinophils% 5.5 % (0-5); Hematocrit 42.4 % (40-54); Hemoglobin 14.5 g/dL (13.0-16.5); Lymphocyte # 0.88 X10^3/ul (0.83-4.51); Lymphocyte % 26.7 % (19-41); Mean Corp Hgb Conc 34.2 g/dL (32-36); Mean Corpuscular Hgb 35.1 pg (27.0-32.0); Mean Corpuscular Volume 102.7 fL (80-94); Mean Platelet Vol. 9.5 fl (6.2-12.0); Monocyte# 0.23 X10^3/uL; NRBC Flagged by Analyzer 0 % (0-5); Neutrophil # 1.95 X10^3/uL (2.7-7.7); Neutrophil % 59.3 % (47-70); Platelet Count 281 K/mm3 (150-450); RBC Distribution Width CV 12.1 % (11.6-14.6); RBC Distribution Width SD 45.6 fl (35.1-43.9); Red Blood Count 4.13 M/mm3 (4.6-6.2); White Blood Count 3.3 K/mm3 (4.4-11.0)
[2022-04-15 13:06] LABS: Vitamin D,25 Hydroxy 31.1 ng/mL
[2022-04-15 13:07] LABS: ALB/GLOB Ratio 1.3 RATIO (0.9-2.4); AST(SGOT) 29 U/L (15-37); Alanine Aminotransfer ALT/SGPT 31 U/L (16-61); Albumin, Serum 4.1 g/dL (3.2-5.0); Alkaline Phosphatase 68 U/L (45-117); Anion Gap 5 (5-15); BUN 10 mg/dL (7-18); BUN/Creat Ratio 8.5 RATIO (10-20); Bilirubin, Direct 0.29 mg/dL (0.00-0.30); Calcium,Total 9.1 mg/dL (8.5-10.1); Chloride 107 mmol/L (98-107); Cholesterol 161 mg/dL (200); Creatinine, Serum 1.18 mg/dL (0.70-1.30); EST Glomerular Filtration Rate 68 mL/min (>60); Est Glom Filt Rate - Afr Amer 83 mL/min (>60); Ferritin 81 ng/mL (26-388); Globulin 3.1 g/dL (2.2-4.2); Glucose 95 mg/dL (74-106); High Density Lipoprotein 38 mg/dL; Iron 179 ug/dL (65-175); Iron Binding Capacity,Total 328 ug/dL (250-450); PERCENT IRON SATURATION 54.6 % (15.0-55.0); PSA,Total - Annual Screen 0.34 ng/mL (0.00-4.00); Potassium 4.3 mmol/L (3.5-5.1); Protein, Total 7.2 g/dL (6.4-8.2); Sodium Level 139 mmol/L (136-145); Triglycerides 91 mg/dL; Very Low Density Lipoprotein 18 mg/dL (5-40)
[2022-04-18 12:35] LABS: KEPPRA (LEVETIRACETAM) 8.1 ug/mL (10.0-40.0)
== END | disposition home or self-care (01) ==
LOC: BIMLAB 09:13
PROVIDERS: PCP Nurse Practitioner Family; Referring Provider Nurse Practitioner Family; Visit Provider Nurse Practitioner Family
DX: D64.9 Anemia, unspecified (principal); R79.89 Other specified abnormal findings of blood chemistry; E56.9 Vitamin deficiency, unspecified; E78.00 Pure hypercholesterolemia, unspecified; Z12.5 Encounter for screening for malignant neoplasm of prostate
CPT/HCPCS: 80053; 80061; 80177; 82248; 82306; 82728; 83540; 83550; 84153; 85025; G0103

== ENCOUNTER → 2022-10-20 | Outpatient (CLI) | payer OTHER, SELFPAY ==
[2022-10-20 12:08] LABS: Absolute Lymphocyte Count 1.15 X10^3/uL (0.83-4.51); Absolute Neutrophil Count 2.1 X10^3/uL (2.0-7.7); Basophil# 0.05 X10^3/uL; Basophil% 1.3 % (0-1); Eosinophil# 0.25 X10^3/uL; Eosinophils% 6.5 % (0-5); Hematocrit 42.7 % (40-54); Hemoglobin 14.6 g/dL (13.0-16.5); Lymphocyte # 1.15 X10^3/ul (0.83-4.51); Lymphocyte % 29.7 % (19-41); Mean Corp Hgb Conc 34.2 g/dL (32-36); Mean Corpuscular Volume 105.4 fL (80-94); Mean Platelet Vol. 9.8 fl (6.2-12.0); Monocyte# 0.28 X10^3/uL; Monocyte% 7.2 % (0-10); NRBC Flagged by Analyzer 0 % (0-5); Neutrophil # 2.12 X10^3/uL (2.7-7.7); Neutrophil % 54.8 % (47-70); Platelet Count 305 K/mm3 (150-450); RBC Distribution Width CV 12.2 % (11.6-14.6); RBC Distribution Width SD 48.1 fl (35.1-43.9); Red Blood Count 4.05 M/mm3 (4.6-6.2); White Blood Count 3.9 K/mm3 (4.4-11.0)
[2022-10-20 12:34] LABS: Vitamin B12 600 pg/mL (211-911); Vitamin D,25 Hydroxy 47.2 ng/mL
[2022-10-20 12:59] LABS: ALB/GLOB Ratio 1.3 RATIO (0.9-2.4); AST(SGOT) 28 U/L (15-37); Alanine Aminotransfer ALT/SGPT 32 U/L (16-61); Albumin, Serum 4.1 g/dL (3.2-5.0); Alkaline Phosphatase 64 U/L (45-117); Anion Gap 4 (5-15); BUN 8 mg/dL (7-18); BUN/Creat Ratio 7.8 RATIO (10-20); Calcium,Total 8.6 mg/dL (8.5-10.1); Chloride 108 mmol/L (98-107); Creatinine, Serum 1.03 mg/dL (0.70-1.30); EST Glomerular Filtration Rate 80 mL/min (>60); Est Glom Filt Rate - Afr Amer 97 mL/min (>60); Ferritin 99 ng/mL (26-388); Globulin 3.2 g/dL (2.2-4.2); Glucose 96 mg/dL (74-106); Iron 177 ug/dL (65-175); Iron Binding Capacity,Total 364 ug/dL (250-450); Magnesium 2.1 mg/dL (1.6-2.6); PERCENT IRON SATURATION 48.6 % (15.0-55.0); Potassium 4.4 mmol/L (3.5-5.1); Protein, Total 7.3 g/dL (6.4-8.2); Sodium Level 138 mmol/L (136-145)
[2022-10-21 15:09] LABS: Anti-Centromere B Ab <0.2 AI (0.0-0.9); Anti-Chromatin <0.2 AI (0.0-0.9); Anti-Jo <0.2 AI (0.0-0.9); Anti-Nuclear Antibody Test Positive (.); Anti-Scleroderma-70 AB <0.2 AI (0.0-0.9); Anti-dsDNA Ab <1 IU/mL (0-9); RNP Ab <0.2 AI (0.0-0.9); SJOGREN'S Anti-SS-A test < 0.2 AI (0.0-0.9); SJOGREN'S Anti-SS-B test < 0.2 AI (0.0-0.9); Smith Ab <0.2 AI (0.0-0.9)
== END | disposition home or self-care (01) ==
LOC: BIMLAB 09:51
PROVIDERS: PCP Internal Medicine; Referring Provider Internal Medicine; Visit Provider Internal Medicine
DX: K90.0 Celiac disease (principal)
CPT/HCPCS: 36415; 80053; 82306; 82607; 82728; 82746; 83540; 83550; 83735; 85025; 86038; 86225; 86235

== ENCOUNTER → 2024-05-11 | Outpatient (CLI) | payer BC, SELFPAY ==
[2024-05-11 12:22] LABS: Absolute Lymphocyte Count 0.72 X10^3/uL (0.83-4.51); Absolute Neutrophil Count 2.8 X10^3/uL (2.0-7.7); Basophil# 0.04 X10^3/uL; Eosinophil# 0.08 X10^3/uL; Hematocrit 42.5 % (40-54); Hemoglobin 14.8 g/dL (13.0-16.5); Lymphocyte # 0.72 X10^3/ul (0.83-4.51); Lymphocyte % 17.8 % (19-41); Mean Corp Hgb Conc 34.8 g/dL (32-36); Mean Corpuscular Hgb 36.2 pg (27.0-32.0); Mean Corpuscular Volume 103.9 fL (80-94); Mean Platelet Vol. 9.3 fl (6.2-12.0); Monocyte% 9.9 % (0-10); NRBC Flagged by Analyzer 0 % (0-5); Neutrophil # 2.78 X10^3/uL (2.7-7.7); Neutrophil % 68.8 % (47-70); Platelet Count 281 K/mm3 (150-450); RBC Distribution Width CV 12.3 % (11.6-14.6); RBC Distribution Width SD 47.3 fl (35.1-43.9); Red Blood Count 4.09 M/mm3 (4.6-6.2)
[2024-05-11 14:10] LABS: ALB/GLOB Ratio 1.5 RATIO (0.9-2.4); AST(SGOT) 30 U/L (<=37); Alanine Aminotransfer ALT/SGPT 24 U/L (<=46); Albumin, Serum 4.6 g/dL (3.5-5.0); Alkaline Phosphatase 61 U/L (40-129); Anion Gap 12 (5-15); BUN 15 mg/dL (4-19); BUN/Creat Ratio 16.3 RATIO (10-20); Calcium,Total 9.5 mg/dL (7.6-11.0); Carbon Dioxide 23.1 mmol/L (21.0-32.0); Chloride 104 mmol/L (98-108); Cholesterol 166 mg/dL (<=200); EST Glomerular Filtration Rate 101 (>60); Ferritin 236 ng/mL (37-417); Glucose 102 mg/dL (70-99); High Density Lipoprotein 55 mg/dL; Low Density Lipoprotein Calc. 100 mg/dL; Potassium 4.8 mmol/L (3.3-5.1); Protein, Total 7.6 g/dL (5.9-8.4); Sodium Level 139 mmol/L (133-145); Total Bilirubin 0.55 mg/dL (0.00-1.30); Triglycerides 57 mg/dL; Very Low Density Lipoprotein 11 mg/dL (5-40); Vitamin B12 388 pg/mL (180-914); Vitamin D,25 Hydroxy 21.4 ng/mL (30-100); cholesterol:hdl ratio screen 3.04
[2024-05-11 15:10] LABS: Iron 35 ug/dL (65-175); Iron Binding Capacity,Total 320 ug/dL (250-450); Iron Binding Capacity,Unsat 285 ug/dL (228-428)
== END | disposition home or self-care (01) ==
LOC: BIMLAB 09:37
PROVIDERS: PCP Internal Medicine; Visit Provider Internal Medicine
DX: R53.83 Other fatigue (principal); K90.0 Celiac disease; E78.2 Mixed hyperlipidemia
CPT/HCPCS: 36415; 80053; 80061; 82306; 82607; 82728; 83540; 83550; 85025

== ENCOUNTER → 2024-05-31 | Outpatient (CLI) | payer BC, SELFPAY | END | disposition home or self-care (01) | LOC: SL 08:18 | PROVIDERS: PCP Internal Medicine; Referring Provider Student in an Organized Health Care Education/Training Program; Visit Provider Student in an Organized Health Care Education/Training Program | DX: G47.10 Hypersomnia, unspecified (principal) | CPT/HCPCS: 95806 ==